=== PATIENT | female | born 1980 | race Caucasian/White ===

== ENCOUNTER 2016-03-10 20:53 | Emergency (ER) | payer OTHER ==
[~2016-03-10] VITALS: Ht 170.2 cm; Wt 72.3 kg
[~2016-03-10 20:53] MED LIST: ONDA4TAB7 SL
[2016-03-10 20:57] VITALS: TEMP 36.7; Ht 170.2 cm; Wt 72.3 kg
[2016-03-10] MEDS ORDERED: FLUO40CA8 PO (21:08)
[2016-03-10] MEDS ORDERED: CLON1TAB3 PO (21:08)
[2016-03-10] MEDS ORDERED: BSP/10 PO (21:08)
[2016-03-10] MEDS ORDERED: SODIUM CHLORIDE 0.9% 1000ML 1,000 ML IV STA (21:12)
[2016-03-10] MEDS ORDERED: KETOROLAC TROMETHAMINE 30 MG/ML VIAL IV STA (21:12)
[2016-03-10] MEDS ORDERED: OPTIRAY 320 IV PRN (21:30)
[2016-03-10 21:33] LABS: BASO % 0.2 %; BASO ABS # 0.01 K/uL (0-0.2); COMPLETE YES; EOS % 1.1 %; HEMATOCRIT 38.5 % (37-47); IG% 0.2 %; LYMPH % 33.5 %; LYMPH ABS # 1.51 K/uL (1.2-3.4); MEAN CELL VOLUME 88.1 fL (80-100); MEAN CORPUSCULAR HEMOGLOBIN 30.2 pg (25-34); MEAN CORPUSCULAR HGB CONC 34.3 g/dl (32-36); MEAN PLATELET VOLUME 10.7 fL (7.4-10.4); MONO % 8.6 %; NEUT % 56.4 %; PLATELET COUNT 196 K/uL (130-400); RED BLOOD COUNT 4.37 M/uL (4.2-5.4); WHITE BLOOD COUNT 4.51 K/uL (4.8-10.8)
[2016-03-10 21:50] LABS: BUN/CREATININE RATIO 10.3 (10-20); CALCIUM 9.2 mg/dl (8.5-10.1); CREATININE 0.98 mg/dl (0.60-1.20); POTASSIUM 3.5 mmol/L (3.5-5.1)
[2016-03-10 22:08] LABS: URINE APPEARANCE CLEAR (CLEAR); URINE COLOR DK YELLOW; URINE EPITHELIAL CELL AUTO >30 /lpf (0-5); URINE NITRITE NEG (NEG); URINE PH 6.5 (4.5-7.5); URINE SPECIFIC GRAVITY 1.028 (1.000-1.030); UROBILINOGEN NEG (NEG); ZZUR CULT IF INDIC CLEAN CATCH NO
[2016-03-10 22:10] LABS: MANUAL MICROSCOPIC REQUIRED? NO; REVIEW REQ? NO
[2016-03-10 22:11] LABS: URINE BILIRUBIN NEG (NEG)
[2016-03-10] MEDS ORDERED: MoRPHine SULFATE 10 MG/ML CARP/VIAL IV STA (22:25)
--- NOTE | 2016-03-10 22:47 | DIAGNOSTIC IMAGING REPORT ---
ABDOMEN AND PELVIS CT WITH IV CONTRAST CT DOSE: 355.12 mGy.cm HISTORY: lower pelvic abdominal pain TECHNIQUE: Multiaxial CT images of the abdomen and pelvis were performed following the use of intravenous contrast. COMPARISON STUDY: Abdomen and pelvis CT 08/04/2009. FINDINGS: Mild dependent changes seen within the lung bases posteriorly. No pneumoperitoneum. No pneumatosis. No fractures within the visualized osseous structures. There is a punctate stone within the gallbladder. Stable 9 mm hypodense lesion at the tip of the left hepatic lobe. Given the long-term stability this favors a benign lesion such as a hemangioma. The spleen, pancreas, kidneys, and adrenal glands are unremarkable. Normal bladder. The uterus is surgically absent. No retroperitoneal lymphadenopathy. No bowel wall thickening or obstruction. Normal appendix. IMPRESSION: 1. No bowel wall thickening or obstruction. 2. Normal appendix. 3. Cholelithiasis. No gallbladder wall thickening. Electronically signed by: Tomas London M.D. 03/10/2016 10:45 PM Dictated Date/Time: 03/10/2016 10:37 PM
[2016-03-10 23:42] VITALS: BP 111/70; PULSE 57; O2SAT 98
--- NOTE | 2016-03-11 01:31 | EMERGENCY ROOM VISIT NOTE ---
History Report prepared by Vicky: Annmarie Lockett Under the Supervision of: Dr. Christian Johnson D.O. First contact with patient: 21:01 Chief Complaint: ABDOMINAL PAIN Stated Complaint: PELVIC PAIN, GOING TO LEGS History of Present Illness The patient is a 35 year old female who presents to the Emergency Room with complaints of intermittent pelvic pain beginning 3 days ago. The patient states that she has had this pain intermittently over the last few days but today the pain is constant and worsened. She reports that the pain is in her lower abdomen area and radiated from the rectum and vagina. She complains of burning going down anterior portion of her legs and nausea. The patient denies any change in stools with her last bowel movement earlier today, trauma, fever, vomiting, diarrhea, vaginal discharge, vaginal bleeding, fever, new low back pain, numbness, weakness, and urinary symptoms. She notes that she has been having discharge from her nipples and has a lump in her breast that she is following up with her PCP for. The patient reports that she had a complete hysterectomy and still has her gallbladder and appendix. Source of History: patient Onset: 3 days ago Position: pelvis Timing: intermittent Associated Symptoms: + nausea, No back pain, No diarrhea, No fevers, No numbness, No urinary symptoms, No vomiting, No weakness Note: She complains of burning going down her legs and pain from the rectum and vagina. The patient denies any change in stools with her last bowel movement earlier today, trauma, vaginal discharge, vaginal bleeding. Review of Systems See HPI for pertinent positives & negatives. A total of 10 systems reviewed and were otherwise negative. Past Medical & Surgical Surgical Problems: (1) Hx of hysterectomy with oophorectomy Family History FH: cancer Social History Smoking Status: Former Smoker Alcohol Use: occasionally Marital Status: Housing Status: lives with family Occupation Status: employed Current/Historical Medications Scheduled Buspirone HCl (Buspirone HCl), 10 MG PO BID Fluoxetine (Prozac), 40 MG PO QPM Scheduled PRN Clonazepam (Klonopin), 1 MG PO TID PRN for Anxiety Allergies Coded Allergies: Ciprofloxacin (Unverified Allergy, Unknown, ., 03/10/16) Physical Exam Vital Signs Date Time Temp Pulse Resp B/P Pulse Ox O2 Delivery O2 Flow Rate FiO2 03/10/16 23:42 57 18 111/70 98 Room Air 03/10/16 23:41 81 16 121/66 99 03/10/16 22:50 70 20 112/59 98 Room Air 03/10/16 20:57 36.7 63 20 102/68 97 Room Air Physical Exam GENERAL: sitting up in bed, disheveled, non-toxic EYE EXAM: normal conjunctiva OROPHARYNX: no exudate, no erythema, lips, buccal mucosa, and tongue normal and mucous membranes are moist NECK: supple, no nuchal rigidity, no adenopathy, non-tender LUNGS: Clear to auscultation. Normal chest wall mechanics HEART: no murmurs, S1 normal and S2 normal ABDOMEN: abdomen soft, mild tenderness in suprapubic region , normo-active bowel sounds, no masses, no rebound or guarding. BACK: Back is symmetrical on inspection and there is no deformity, no midline tenderness, no CVA tenderness. SKIN: no rashes and no bruising UPPER EXTREMITIES: upper extremities are grossly normal. LOWER EXTREMITIES: No pitting edema. NEURO EXAM: Normal sensorium, cranial nerves II-XII grossly intact, normal speech, no gross weakness of arms, no gross weakness of legs. PELVIC: Normal external genitalia, normal vaginal mucosa, no cervix present. Medical Decision & Procedures ER Provider Diagnostic Interpretation: CT:Per my review, radiologist interpretation. ABDOMEN AND PELVIS CT WITH IV CONTRAST FINDINGS: Mild dependent changes seen within the lung bases posteriorly. No pneumoperitoneum. No pneumatosis. No fractures within the visualized osseous structures. There is a punctate stone within the gallbladder. Stable 9 mm hypodense lesion at the tip of the left hepatic lobe. Given the long-term stability this favors a benign lesion such as a hemangioma. The spleen, pancreas, kidneys, and adrenal glands are unremarkable. Normal bladder. The uterus is surgically absent. No retroperitoneal lymphadenopathy. No bowel wall thickening or obstruction. Normal appendix. IMPRESSION: 1. No bowel wall thickening or obstruction. 2. Normal appendix. 3. Cholelithiasis. No gallbladder wall thickening. Electronically signed by: Tomas London M.D. 03/10/2016 10:45 PM Dictated Date/Time: 03/10/2016 10:37 PM Laboratory Results 03/10/16 21:25 Red Blood Count 4.37, Mean Corpuscular Volume 88.1, Mean Corpuscular Hemoglobin 30.2, Mean Corpuscular Hemoglobin Concent 34.3, Mean Platelet Volume 10.7, Neutrophils (%) (Auto) 56.4, Lymphocytes (%) (Auto) 33.5, Monocytes (%) (Auto) 8.6, Eosinophils (%) (Auto) 1.1, Basophils (%) (Auto) 0.2, Neutrophils # (Auto) 2.54, Lymphocytes # (Auto) 1.51, Monocytes # (Auto) 0.39, Eosinophils # (Auto) 0.05, Basophils # (Auto) 0.01 03/10/16 21:25 Test 03/10/16 21:25 White Blood Count 4.51 K/uL (4.8-10.8) Red Blood Count 4.37 M/uL (4.2-5.4) Hemoglobin 13.2 g/dL (12.0-16.0) Hematocrit 38.5 % (37-47) Mean Corpuscular Volume 88.1 fL (80-100) Mean Corpuscular Hemoglobin 30.2 pg (25-34) Mean Corpuscular Hemoglobin Concent 34.3 g/dl (32-36) Platelet Count 196 K/uL (130-400) Mean Platelet Volume 10.7 fL (7.4-10.4) Neutrophils (%) (Auto) 56.4 % Lymphocytes (%) (Auto) 33.5 % Monocytes (%) (Auto) 8.6 % Eosinophils (%) (Auto) 1.1 % Basophils (%) (Auto) 0.2 % Neutrophils # (Auto) 2.54 K/uL (1.4-6.5) Lymphocytes # (Auto) 1.51 K/uL (1.2-3.4) Monocytes # (Auto) 0.39 K/uL (0.11-0.59) Eosinophils # (Auto) 0.05 K/uL (0-0.5) Basophils # (Auto) 0.01 K/uL (0-0.2) RDW Standard Deviation 40.6 fL (36.4-46.3) RDW Coefficient of Variation 12.6 % (11.5-14.5) Immature Granulocyte % (Auto) 0.2 % Immature Granulocyte # (Auto) 0.01 K/uL (0.00-0.02) Urine Color DK YELLOW Urine Appearance CLEAR (CLEAR) Urine pH 6.5 (4.5-7.5) Urine Specific [place] 1.028 (1.000-1.030) Urine Protein NEG (NEG) Urine Glucose (UA) NEG (NEG) Urine Ketones NEG (NEG) Urine Occult Blood NEG (NEG) Urine Nitrite NEG (NEG) Urine Bilirubin NEG (NEG) Urine Urobilinogen NEG (NEG) Urine Leukocyte Esterase TRACE (NEG) Urine WBC (Auto) 1-5 /hpf (0-5) Urine RBC (Auto) 0-4 /hpf (0-4) Urine Hyaline Casts (Auto) 5-10 /lpf (0-5) Urine Epithelial Cells (Auto) >30 /lpf (0-5) Urine Bacteria (Auto) NEG (NEG) Urine Test NEG (NEG) Anion Gap 7.0 mmol/L (3-11) Est Creatinine Clear Calc Drug Dose 76.5 ml/min Estimated GFR () 85.4 Estimated GFR (Non- 73.7 BUN/Creatinine Ratio 10.3 (10-20) Calcium Level 9.2 mg/dl (8.5-10.1) Total Bilirubin 1.1 mg/dl (0.2-1) Direct Bilirubin 0.2 mg/dl (0-0.2) Aspartate Amino Transf (AST/SGOT) 14 U/L (15-37) Alanine Aminotransferase (ALT/SGPT) 16 U/L (12-78) Alkaline Phosphatase 89 U/L (45-117) Total Protein 7.1 gm/dl (6.4-8.2) Albumin 4.2 gm/dl (3.4-5.0) Lipase 109 U/L (73-393) Laboratory results per my review. Medications Administered Medications (Trade) Dose Ordered Sig/Jono Route Start Time Stop Time Status Last Admin Dose Admin Sodium Chloride (Nss 1000ml) 1,000 ml @ 999 mls/hr Q1H1M STAT IV 03/10/16 21:12 03/10/16 22:12 DC 03/10/16 21:29 999 MLS/HR Ketorolac Tromethamine (Toradol Inj) 30 mg NOW STAT IV 03/10/16 21:12 03/10/16 21:13 DC 03/10/16 21:29 30 MG Morphine Sulfate (MoRPHine SULFATE INJ) 6 mg NOW STAT IV 03/10/16 22:25 03/10/16 22:26 DC 03/10/16 22:49 6 MG ED Course ED COURSE: Vital signs were reviewed and normal. The patients medical record was reviewed The above diagnostic studies were performed and reviewed. ED treatments and interventions as stated above. 2105: The patient was evaluated in room A12. A complete history and physical examination was performed. 2111: Toradol Inj 30mg IV, Sodium Chloride 1000 ml @ 999 mls/hr IV. 0: I reevaluated the patient and did a pelvic exam. 2224: Morphine Sulfate 6mg IV. 2337: Upon reevaluation, the patient is hemodynamically stable.I discussed my findings with the patient and she understands and agrees with the treatment plan. Based on the patients age, coexisting illnesses, exam and lab findings the decision to treat as an outpatient was made. The patient remained stable while under my care. The patient appeared well at the time of discharge. Medical Decision Differential diagnoses includes but is not limited to gastritis, peptic ulcer disease, GERD, gallbladder disease, pancreatitis, small bowel obstruction, acute coronary syndrome, pericarditis, ischemic bowel, irritable bowel disease, irritable bowel syndrome, appendicitis, diverticulitis, malignancy, hernia, urinary tract infection, torsion, /ectopic , perforation, trauma, infectious. Patient is a 35-year-old female who presents the ER for lower abdominal pain. Her pain is located just above her pubic symphysis. CBC along with BMP, LFTs are unremarkable. TBilirubin was slightly elevated at 1.1. Lipase is normal. UA was negative. was negative. CT of her abdomen pelvis was unremarkable. Patient was updated regards to findings. Pelvic was performed and was benign. Uncertain of the true etiology of her pain at this time and consequently recommended following up with PCP in next 24 hours. I do not believe that this is pelvic in origin with her benign exam and a complete hysterectomy. Her appendix was normal on CT. There is no bowel pathology. She was given 1 dose of IV morphine while in the ER was discharged follow-up with her primary care doctor. Discussed with Pt concerning signs and symptoms to watch out for. Pt was instructed to follow up with their PCP and discussed with the patient their option to return to the ED at anytime for persistent or worsening symptoms. The appropriate anticipatory guidance and out-patient management, including indications for return to the emergency department, were explained at length to the patient and understood. Impression Primary Impression: Lower abdominal pain Scribe Attestation The scribe's documentation has been prepared under my direction and personally reviewed by me in its entirety. I confirm that the note above accurately reflects all work, treatment, procedures, and medical decision making performed by me. Departure Information Dispostion Home / Self-Care Referrals Lino Solorzano D.O. (PCP) Forms Call Back Authorization, HOME CARE DOCUMENTATION FORM, IMPORTANT VISIT INFORMATION Patient Instructions ED Abd Pain Unkn Cause Fem, My [facility] Additional Instructions Please follow up with your primary care doctor with in the next 24 hours. Any worsening of your symptoms, please return to the ED immediately. This includes any fevers greater than 100.4, worsening abdominal pain, blood in her stool, pain with pain, weakness in the legs, numbness in her legs, numbness in her groin, or any other concerning signs or symptoms from your standpoint. Please take motion or Tylenol as needed for pain.
== END 2016-03-10 23:42 | disposition home or self-care (01) ==
LOC: C.EDB 20:54 → C.EDA 23:42
DX: R10.30 Lower abdominal pain, unspecified (principal); Z90.710 Acquired absence of both cervix and uterus; Z87.891 Personal history of nicotine dependence

== ENCOUNTER 2016-03-13 15:36 | Inpatient (IN) | payer OTHER ==
[~2016-03-13] VITALS: Ht 170.2 cm; Wt 73.3 kg
[~2016-03-13 15:36] MED LIST changes: +BSP/10 PO; +CLON1TAB3 PO; +FLUO40CA8 PO; -ONDA4TAB7 SL
[2016-03-13] MEDS ORDERED: ONDANSETRON INJ 2 MG/ML 2 ML VIAL IV STA (15:54)
[2016-03-13] MEDS ORDERED: SODIUM CHLORIDE 0.9% 1000ML 1,000 ML IV STA ×2 (15:54)
[2016-03-13] MEDS ORDERED: ONDANSETRON INJ 2 MG/ML 2 ML VIAL IV PRN ×2 (16:00→19:15)
[2016-03-13] MEDS ORDERED: KETOROLAC TROMETHAMINE 30 MG/ML VIAL IV STA (16:01)
[2016-03-13] MEDS ORDERED: ACETAMINOPHEN 500 MG TAB PO STA (16:01)
--- NOTE | 2016-03-13 16:04 | EMERGENCY ROOM VISIT NOTE ---
History Report prepared by Vicky: Aroldo Uribe Under the Supervision of: Dr. Jenna Duran M.D. First contact with patient: 15:45 Chief Complaint: ABDOMINAL PAIN Stated Complaint: SHARP ABD PAIN,NAUSEA,VOMITING,NUMBNESS HANDS/FACE History of Present Illness The patient is a 35 year old female who presents to the Emergency Room with complaints of persistent upper abdominal pain for the past week. The pain is sharp and is rated 8/10 in severity. The patient experienced nausea and vomiting earlier today. She also complains of chills and sweats. She denies any chest pain or shortness of breath. The patient was in the ED for the same abdominal pain three days ago. She had a CT scan that showed gallstones. The patient went to her PCP's office today, where she started to experience the nausea and vomiting. Source of History: patient Onset: one week Position: abdomen (upper) Symptom Intensity: 8/10 Quality: sharp Timing: other (persistent) Associated Symptoms: + chills, + nausea, + vomiting, No SOB, No chest pain Review of Systems See HPI for pertinent positives & negatives. A total of 10 systems reviewed and were otherwise negative. Past Medical & Surgical Medical Problems: (1) Biliary colic Surgical Problems: (1) Hx of hysterectomy with oophorectomy Family History FH: cancer Social History Smoking Status: Former Smoker Alcohol Use: occasionally Marital Status: Housing Status: lives with family Occupation Status: employed Current/Historical Medications Scheduled Buspirone HCl (Buspirone HCl), 10 MG PO BID Fluoxetine (Prozac), 40 MG PO QPM Scheduled PRN Clonazepam (Klonopin), 1 MG PO TID PRN for Anxiety Allergies Coded Allergies: Ciprofloxacin (Unverified Allergy, Unknown, ., 03/13/16) Physical Exam Vital Signs Date Time Temp Pulse Resp B/P Pulse Ox O2 Delivery O2 Flow Rate FiO2 03/13/16 19:11 68 16 109/61 97 Room Air 03/13/16 17:49 68 18 108/66 97 Room Air 03/13/16 17:04 61 18 97/57 96 Room Air 03/13/16 15:43 36.6 68 18 118/76 99 Room Air Physical Exam CONSTITUTIONAL: Moderate distress. Nontoxic in appearance. HEENT: No icterus, moist mucous membranes NECK: No meningismus, trachea is midline. CARDIOVASCULAR: Regular rate, normal perfusion RESPIRATORY: Unlabored breathing. Clear to auscultation. GASTROINTESTINAL: Moderate right upper quadrant tenderness. GENITOURINARY: No flank tenderness MUSCULOSKELETAL: Full range of motion NEUROLOGIC: No acute gross focal deficits. PSYCHIATRIC: Normal affect SKIN: Normal for ethnicity. Medical Decision & Procedures ER Provider Diagnostic Interpretation: US results as stated below per my review and radiologist interpretation. ABDOMINAL ULTRASOUND, RIGHT UPPER QUADRANT HISTORY: Abdominal pain, nausea and vomiting. COMPARISON: Right upper quadrant ultrasound September 02, [address] of the abdomen and pelvis March 10, 2016. FINDINGS: The liver is sonographically normal. There is trace sludge within the gallbladder. A suspected small gallstone is better depicted on recent CT. There is no gallbladder wall thickening or pericholecystic fluid. There is no biliary ductal dilatation. The pancreatic body is normal. The head and tail are partially obscured. There is no right hydronephrosis. IMPRESSION: Suspected cholelithiasis, better depicted on prior CT. Minimal gallbladder sludge. No sonographic evidence of acute cholecystitis. Electronically signed by: Kian Hurt M.D. 03/13/2016 5:56 PM Dictated Date/Time: 03/13/2016 5:53 PM Laboratory Results 03/13/16 15:55 Red Blood Count 4.42, Mean Corpuscular Volume 86.7, Mean Corpuscular Hemoglobin 29.4, Mean Corpuscular Hemoglobin Concent 33.9, Mean Platelet Volume 10.8, Neutrophils (%) (Auto) 68.4, Lymphocytes (%) (Auto) 24.1, Monocytes (%) (Auto) 6.9, Eosinophils (%) (Auto) 0.3, Basophils (%) (Auto) 0.3, Neutrophils # (Auto) 2.19, Lymphocytes # (Auto) 0.77, Monocytes # (Auto) 0.22, Eosinophils # (Auto) 0.01, Basophils # (Auto) 0.01 03/13/16 15:55 Test 03/13/16 15:55 03/13/16 17:05 White Blood Count 3.20 K/uL (4.8-10.8) Red Blood Count 4.42 M/uL (4.2-5.4) Hemoglobin 13.0 g/dL (12.0-16.0) Hematocrit 38.3 % (37-47) Mean Corpuscular Volume 86.7 fL (80-100) Mean Corpuscular Hemoglobin 29.4 pg (25-34) Mean Corpuscular Hemoglobin Concent 33.9 g/dl (32-36) Platelet Count 179 K/uL (130-400) Mean Platelet Volume 10.8 fL (7.4-10.4) Neutrophils (%) (Auto) 68.4 % Lymphocytes (%) (Auto) 24.1 % Monocytes (%) (Auto) 6.9 % Eosinophils (%) (Auto) 0.3 % Basophils (%) (Auto) 0.3 % Neutrophils # (Auto) 2.19 K/uL (1.4-6.5) Lymphocytes # (Auto) 0.77 K/uL (1.2-3.4) Monocytes # (Auto) 0.22 K/uL (0.11-0.59) Eosinophils # (Auto) 0.01 K/uL (0-0.5) Basophils # (Auto) 0.01 K/uL (0-0.2) RDW Standard Deviation 40.3 fL (36.4-46.3) RDW Coefficient of Variation 12.5 % (11.5-14.5) Immature Granulocyte % (Auto) 0.0 % Immature Granulocyte # (Auto) 0.00 K/uL (0.00-0.02) Anion Gap 9.0 mmol/L (3-11) Est Creatinine Clear Calc Drug Dose 89.2 ml/min Estimated GFR () 102.9 Estimated GFR (Non- 88.8 BUN/Creatinine Ratio 14.8 (10-20) Calcium Level 9.2 mg/dl (8.5-10.1) Total Bilirubin 1.4 mg/dl (0.2-1) Direct Bilirubin 0.2 mg/dl (0-0.2) Aspartate Amino Transf (AST/SGOT) 12 U/L (15-37) Alanine Aminotransferase (ALT/SGPT) 17 U/L (12-78) Alkaline Phosphatase 78 U/L (45-117) Total Protein 7.0 gm/dl (6.4-8.2) Albumin 4.1 gm/dl (3.4-5.0) Lipase 113 U/L (73-393) Human Chorionic Gonadotropin, Qual NEG (NEG) Urine Color YELLOW Urine Appearance CLEAR (CLEAR) Urine pH >= 9.0 (4.5-7.5) Urine Specific [place] 1.025 (1.000-1.030) Urine Protein NEG (NEG) Urine Glucose (UA) NEG (NEG) Urine Ketones 1+ (NEG) Urine Occult Blood NEG (NEG) Urine Nitrite NEG (NEG) Urine Bilirubin NEG (NEG) Urine Urobilinogen NEG (NEG) Urine Leukocyte Esterase TRACE (NEG) Urine WBC (Auto) 1-5 /hpf (0-5) Urine RBC (Auto) 0-4 /hpf (0-4) Urine Hyaline Casts (Auto) 1-5 /lpf (0-5) Urine Epithelial Cells (Auto) >30 /lpf (0-5) Urine Bacteria (Auto) 1+ (NEG) Labs reviewed by ED physician. Medications Administered Medications (Trade) Dose Ordered Sig/Jono Route Start Time Stop Time Status Last Admin Dose Admin Ondansetron HCl 4 mg 4 mg NOW STAT IV 03/13/16 15:54 03/13/16 15:58 DC 03/13/16 16:19 4 MG Sodium Chloride 1,000 ml @ 0 mls/hr Q0M STAT IV 03/13/16 15:54 03/13/16 15:58 DC 03/13/16 16:18 999 MLS/HR Sodium Chloride (Nss 1000ml) 1,000 ml @ 0 mls/hr Q0M STAT IV 03/13/16 15:54 03/13/16 15:58 DC 03/13/16 17:03 999 MLS/HR Ondansetron HCl (Zofran Inj) 4 mg NOW PRN IV 03/13/16 16:00 04/12/16 15:59 03/13/16 17:20 4 MG Acetaminophen (Tylenol Tab) 1,000 mg NOW STAT PO 03/13/16 16:01 03/13/16 16:02 DC 03/13/16 16:18 1,000 MG Ketorolac Tromethamine (Toradol Inj) 30 mg NOW STAT IV 03/13/16 16:01 03/13/16 16:02 DC 03/13/16 16:19 30 MG Hydromorphone HCl (Dilaudid Inj) 1 mg PRN STAT IV 03/13/16 17:11 03/13/16 17:12 DC 03/13/16 17:20 1 MG ED Course 1546: The patient was evaluated by the [place] medical student. 1557: Past medical records reviewed. The patient was evaluated in room C3. A complete history and physical examination was performed. 1600: Zofran 4 mg IV. 1601: Toradol 30 mg IV, Tylenol 1000 mg PO. 1711: Dilaudid 1 mg IV. 183: Discussed the case with Dr. Greene, Surgery. The patient will be evaluated by them. Medical Decision Differential diagnosis includes biliary disease. 35-year-old return to emergency room for persistent epigastric pain and nausea after recent ED visit several days ago at which time gallstones were identified. She was seen by her primary doctor and referred emergency room at which time she is noted to be in moderate to severe distress with moderate epigastric and right upper quadrant tenderness on exam. Labs and ultrasonic evaluation were negative for emergent disease however given the patient's history and second ED visit this week consultation was obtained with surgery and admission arranged. Consults Time Called: 1835 Consulting Physician: Dr. Greene, Surgery Returned Call: [phone]: Discussed the case with Dr. Greene, Surgery. The patient will be evaluated by them. Impression Primary Impression: Gallstones Scribe Attestation The scribe's documentation has been prepared under my direction and personally reviewed by me in its entirety. I confirm that the note above accurately reflects all work, treatment, procedures, and medical decision making performed by me. Departure Information Dispostion Being Evaluated By Surgeon Referrals No Doctor, Assigned (PCP) Patient Instructions My [facility]
[2016-03-13 16:27] LABS: BASO % 0.3 %; BASO ABS # 0.01 K/uL (0-0.2); COMPLETE YES; EOS % 0.3 %; HEMATOCRIT 38.3 % (37-47); LYMPH % 24.1 %; LYMPH ABS # 0.77 K/uL (1.2-3.4); MEAN CELL VOLUME 86.7 fL (80-100); MEAN CORPUSCULAR HEMOGLOBIN 29.4 pg (25-34); MEAN CORPUSCULAR HGB CONC 33.9 g/dl (32-36); MEAN PLATELET VOLUME 10.8 fL (7.4-10.4); MONO % 6.9 %; NEUT % 68.4 %; PLATELET COUNT 179 K/uL (130-400); RED BLOOD COUNT 4.42 M/uL (4.2-5.4)
[2016-03-13 16:49] LABS: BUN/CREATININE RATIO 14.8 (10-20); CALCIUM 9.2 mg/dl (8.5-10.1); CREATININE 0.84 mg/dl (0.60-1.20); POTASSIUM 3.3 mmol/L (3.5-5.1)
[2016-03-13 16:56] LABS: PREG INTERNAL NEGATIVE QC NEG CLEAR BACKGROUND; PREG INTERNAL POSITIVE QC POS CONTROL LINE
[2016-03-13] MEDS ORDERED: HYDROmorphone INJ 1 MG/ML SYR IV STA (17:11)
[2016-03-13 17:48] LABS: URINE APPEARANCE CLEAR (CLEAR); URINE BILIRUBIN NEG (NEG); URINE COLOR YELLOW; URINE EPITHELIAL CELL AUTO >30 /lpf (0-5); URINE NITRITE NEG (NEG); URINE PH >= 9.0 (4.5-7.5); URINE SPECIFIC GRAVITY 1.025 (1.000-1.030); UROBILINOGEN NEG (NEG)
--- NOTE | 2016-03-13 17:58 | DIAGNOSTIC IMAGING REPORT ---
ABDOMINAL ULTRASOUND, RIGHT UPPER QUADRANT HISTORY: Abdominal pain, nausea and vomiting. COMPARISON: Right upper quadrant ultrasound September 02, [address] of the abdomen and pelvis March 10, 2016. FINDINGS: The liver is sonographically normal. There is trace sludge within the gallbladder. A suspected small gallstone is better depicted on recent CT. There is no gallbladder wall thickening or pericholecystic fluid. There is no biliary ductal dilatation. The pancreatic body is normal. The head and tail are partially obscured. There is no right hydronephrosis. IMPRESSION: Suspected cholelithiasis, better depicted on prior CT. Minimal gallbladder sludge. No sonographic evidence of acute cholecystitis. Electronically signed by: Kian Hurt M.D. 03/13/2016 5:56 PM Dictated Date/Time: 03/13/2016 5:53 PM
[2016-03-13 18:06] LABS: MANUAL MICROSCOPIC REQUIRED? NO; REVIEW REQ? NO; SULFASALICYLIC ACID NEG (NEG)
[2016-03-13] MEDS ORDERED: CLONAZEPAM 1 MG TAB PO PRN (19:15)
[2016-03-13] MEDS ORDERED: PROMETHAZINE HCL INJ 25 MG in SODIUM CHLORIDE 0.9% 50ML 50 ML IV PRN (19:15)
--- NOTE | 2016-03-13 19:50 | HISTORY & PHYSICAL EXAMINATION ---
DATE OF ADMISSION: 03/13/2016 PRINCIPAL DIAGNOSIS: Biliary colic. HISTORY OF PRESENT ILLNESS: The patient is a 35-year-old female who has been in the ER twice, first on March 10 and then today with nausea, vomiting, abdominal pain which has persisted. She has had some chills and sweats. She did have an ultrasound which showed possible gallstones, but also had a CAT scan on her previous presentation showing gallstones. She has had a previous hysterectomy. She is an ex-smoker. REVIEW OF SYSTEMS: Please see HPI for positives. Ten other systems reviewed and negative. FAMILY AND SOCIAL HISTORY: Noncontributory. MEDICATIONS: She takes medications including buspirone, Klonopin and Prozac. ALLERGIES: CIPRO. PHYSICAL EXAMINATION: GENERAL: She is awake and alert, responsive, in no distress. She has no respiratory distress. HEENT: Her sclerae are nonicteric. NECK: Supple. SKIN: She has no rashes. LUNGS: Clear. HEART: Regular rate and rhythm. ABDOMEN: Soft, but she does have tenderness in the upper abdomen to deep palpation. EXTREMITIES: Without significant edema. I did review her CAT scan and ultrasound. Her laboratory showed no significant abnormalities. ASSESSMENT AND PLAN: A 35-year-old female with severe abdominal pain consistent with biliary colic and history of gallstones. I do think she should be admitted to the hospital and then undergo laparoscopic cholecystectomy within the next 24-48 hours.
[2016-03-13 20:00] VITALS: BP 98/59; PULSE 53; TEMP 36.7; O2SAT 96; Ht 170.2 cm; Wt 73.3 kg
[2016-03-13] MEDS ORDERED: PROMETHAZINE HCL INJ 12.5 MG in SODIUM CHLORIDE 0.9% 50ML 50 ML IV PRN (20:00)
[2016-03-13] MEDS: HYDROmorphone INJ 1 MG/ML SYR IV PRN (20:19)
[2016-03-13] MEDS: FLUOXETINE HCL 20 MG CAP PO SCH (21:27)
[2016-03-13] MEDS ORDERED: LACTATED RINGER'S 1000ML 1,000 ML IV SCH (22:00)
[2016-03-13] MEDS: KETOROLAC TROMETHAMINE 30 MG/ML VIAL IV. SCH (22:10)
[2016-03-13] MEDS: AMPICILLIN/SULBACTAM SOD INJ 1,500 MG in SODIUM CHLORIDE 0.9% 100ML 100 ML IV SCH (22:10)
[2016-03-13 23:10] VITALS: BP 82/37; PULSE 57; TEMP 36.5; O2SAT 97
[2016-03-13 23:13] VITALS: BP 76/43
[2016-03-14] VITALS (11 sets, daily range): BP systolic 82–109; BP diastolic 48–65; PULSE 53–64; TEMP 36.3–36.7; O2SAT 95–100
[2016-03-14] MEDS: AMPICILLIN/SULBACTAM SOD INJ 1,500 MG in SODIUM CHLORIDE 0.9% 100ML 100 ML IV SCH ×3 (04:18→16:14)
[2016-03-14] MEDS: KETOROLAC TROMETHAMINE 30 MG/ML VIAL IV. SCH ×4 (05:12→23:50)
--- NOTE | 2016-03-14 05:25 | History & Physical Bridge Note ---
H&P Re-Evaluation Bridge Note: I have examined the patient, reviewed the History & Physical and in the interval since the performance of the History & Physical I have noted the following changes of clinical significance: No changes noted
[2016-03-14] MEDS ORDERED: MIDAZOLAM HCL 1 MG/ML 2ML VIAL ONE (06:45)
[2016-03-14] MEDS ORDERED: FENTANYL CITRATE INJ 50 MCG/1 ML 2 ML VIAL ONE (06:45)
[2016-03-14] MEDS ORDERED: LIDOCAINE HCL 2% 2 ML VIAL (20MG/ML) ONE (07:44)
[2016-03-14] MEDS ORDERED: NEOSTIGMINE METHYLSULFATE 5 MG/5 ML SYR ONE (07:44)
[2016-03-14] MEDS ORDERED: ROCURONIUM BROMIDE 10 MG/ML 5 ML VIAL ONE (07:44)
[2016-03-14] MEDS ORDERED: GLYCOPYRROLATE INJ 0.2 MG/ML VIAL ONE (07:44)
[2016-03-14] MEDS ORDERED: PROPOFOL IV EMULSION 10 MG/ML 20 ML VIAL IV ONE (07:44)
[2016-03-14] MEDS ORDERED: DEXAMETHASONE SOD INJ 4 MG/ML VIAL ONE (07:44)
[2016-03-14] MEDS ORDERED: ONDANSETRON INJ 2 MG/ML 2 ML VIAL ONE (07:44)
[2016-03-14] MEDS ORDERED: INFLUENZA VIRUS QUAD VACCINE 0.5 ML SYR IM. ONE (08:00)
[2016-03-14] MEDS ORDERED: INFLUENZA ADMINISTRATION CHARGE ONE (08:00)
[2016-03-14] MEDS ORDERED: BUPIVACAINE 0.5 % 5 MG/1 ML MPF 30ML VIAL INJ ONE (08:19)
--- NOTE | 2016-03-14 08:28 | [facility] Operative Report ---
Operative Report Operative Date Mar 14, 2016. Pre-Operative Diagnosis Biliary colic Post-Operative Diagnosis same Procedure(s) Performed lap mathew Surgeon Dr. Leonidas Greene Impregnator Surgeon(s) None Estimated Blood Loss 10 mL Findings dilated gb and chronic inflammation in posterior wall Specimens Permanent Specimens A: Gallbladder and contents Anesthesia gen Complication(s) None Disposition Recovery Room / PACU I attest to the content of the Intraoperative Record and any orders documented therein. Any exceptions are noted below.
[2016-03-14] MEDS ORDERED: LACTATED RINGER'S 1000ML 1,000 ML IV SCH (08:30)
[2016-03-14] MEDS ORDERED: FENTANYL CITRATE INJ 50 MCG/1 ML 2 ML VIAL IV PRN (08:45)
[2016-03-14] MEDS ORDERED: ONDANSETRON INJ 2 MG/ML 2 ML VIAL IV PRN (08:45)
[2016-03-14] MEDS ORDERED: MEPERIDINE HCL 25 MG/ML CARP IV PRN (08:45)
[2016-03-14] MEDS ORDERED: EpHEDrine SULFATE INJ 50 MG/ML AMP IV PRN (08:45)
[2016-03-14] MEDS ORDERED: LABETALOL HCL IV 5 MG/ML 20ML IV PRN (08:45)
[2016-03-14] MEDS ORDERED: ATROPINE SULFATE 0.1 MG/ML 5ML SYR IV PRN (08:45)
[2016-03-14] MEDS ORDERED: HYDROmorphone INJ 1 MG/ML SYR IV PRN (08:45)
[2016-03-14] MEDS ORDERED: HYDROmorphone INJ 2 MG/ML SYR/VIAL ONE (08:49)
--- NOTE | 2016-03-14 10:28 | OPERATIVE REPORT ---
DATE OF OPERATION: 03/14/2016 NAME OF OPERATION: Laparoscopic cholecystectomy. PREOPERATIVE DIAGNOSIS: Biliary colic. POSTOPERATIVE DIAGNOSIS: Same. STAFF SURGEON: Dr. Leonidas Greene. ANESTHESIA: General. DESCRIPTION OF PROCEDURE: The patient was brought into the operating room and placed on the operating table in the supine position. Her abdomen was prepped and draped in the usual fashion. Using 0.5% plain Marcaine, all incisions were anesthetized. Incision was made just below the umbilicus through previous scar tissue carrying dissection down to the fascia, placing a Veress needle, and producing a pneumoperitoneum. At this point, three 5-mm ports were placed, 1 cephalad and 2 laterally, all under visualization. The gallbladder was very distended. It was grasped and retracted, aspirated of bile. Then, dissection carried out at the chandler hepatis, identifying the cystic duct and the cystic artery. These were clipped and transected and the gallbladder dissected away from the liver bed in the usual fashion. There was thickening in the posterior wall consistent with chronic inflammation. After appropriate hemostasis and irrigation, the gallbladder was placed in an Endobag and then removed through the umbilical site. All ports were then removed. The umbilical fascia closed using interrupted 0 Vicryl suture. Subcutaneous tissue reapproximated using 2-0 plain catgut suture and then the skin at the umbilicus closed using 5-0 Prolene suture. The other sites were closed using subcuticular 4-0 Monocryl and Dermabond. The patient was transferred to recovery room in stable condition. I attest to the content of the Intraoperative Record and any orders documented therein. Any exceptio ns are noted below.
[2016-03-14] MEDS ORDERED: NURSING VERBAL MED ORDER ONE ×3 (13:30→15:15)
--- NOTE | 2016-03-14 13:51 | Anesthesiology Progress Note ---
Anesthesia Post Op Note Date & Time Mar 14, 2016 at 13:50 Vital Signs Pain Intensity: 2.0 Vital Signs Past 12 Hours Date Time Temp Pulse Resp B/P Pulse Ox O2 Delivery O2 Flow Rate FiO2 03/14/16 12:43 58 18 103/65 99 Room Air 03/14/16 11:27 36.7 64 17 96/58 98 Nasal Cannula 2.0 03/14/16 10:29 36.6 53 17 109/55 100 Nasal Cannula 2.0 03/14/16 10:04 36.6 54 16 100/56 100 Nasal Cannula 2.0 03/14/16 09:36 03/14/16 09:30 96 Nasal Cannula 2.0 03/14/16 09:30 36.6 54 16 98/54 96 Nasal Cannula 2.0 03/14/16 09:30 96 Nasal Cannula 2.0 03/14/16 09:20 36.7 03/14/16 09:19 56 16 96 03/14/16 09:19 57 16 114/63 98 03/14/16 09:13 99/57 03/14/16 09:09 52 16 03/14/16 09:09 51 12 97 03/14/16 09:08 96/58 03/14/16 09:07 51 16 96 03/14/16 09:07 51 16 03/14/16 09:03 90/55 03/14/16 09:02 53 16 98 03/14/16 09:02 53 16 98 03/14/16 08:59 98/52 03/14/16 08:56 56 15 100 03/14/16 08:56 51 16 100 03/14/16 08:53 108/61 03/14/16 08:52 37.3 66 16 118/68 100 Mask 10 03/14/16 08:51 55 16 100 03/14/16 08:51 55 16 03/14/16 08:50 56 12 03/14/16 08:50 57 12 100 03/14/16 08:49 107/75 03/14/16 08:45 56 13 100 03/14/16 08:45 56 12 100 03/14/16 08:43 103/57 03/14/16 08:39 119/51 03/14/16 08:35 55 13 03/14/16 08:35 55 13 100 03/14/16 06:55 36.7 53 19 97/48 97 Room Air 03/14/16 03:57 57 97/60 Notes Mental Status: alert / awake / arousable, participated in evaluation Pt Amnestic to Procedure: Yes Nausea / Vomiting: adequately controlled Pain: adequately controlled Airway Patency, RR, SpO2: stable & adequate BP & HR: stable & adequate Hydration State: stable & adequate Anesthetic Complications: no major complications apparent
[2016-03-14] MEDS ORDERED: ALUMINUM/MAGNESIUM SUSP 30 ML UDC PO PRN (14:45)
[2016-03-14] MEDS: HYDROCODONE/ACETAMOPHEN 5/325MG TAB PO PRN (16:13)
[2016-03-14] MEDS: HYDROmorphone INJ 0.5 MG/0.5 ML SYR IV PRN ×2 (17:27→20:59)
[2016-03-14] MEDS: FLUOXETINE HCL 20 MG CAP PO SCH (20:56)
[2016-03-15 03:25] VITALS: BP 97/56; PULSE 76; TEMP 36.8; O2SAT 95
[2016-03-15] MEDS: KETOROLAC TROMETHAMINE 30 MG/ML VIAL IV. SCH (05:04)
[2016-03-15 05:28] LABS: HEMATOCRIT 32.5 % (37-47); MEAN CORPUSCULAR HEMOGLOBIN 30.4 pg (25-34); MEAN CORPUSCULAR HGB CONC 34.2 g/dl (32-36); MEAN PLATELET VOLUME 11.2 fL (7.4-10.4); PLATELET COUNT 177 K/uL (130-400); RED BLOOD COUNT 3.65 M/uL (4.2-5.4); WHITE BLOOD COUNT 5.74 K/uL (4.8-10.8)
--- NOTE | 2016-03-15 06:07 | Surgery Progress Note ---
Surgery Progress Note Date of Service Mar 15, 2016. Subjective resting comfortably- vitals stable po pain med tolerated Objective Vital Signs: Date Time Temp Pulse Resp B/P Pulse Ox O2 Delivery O2 Flow Rate FiO2 03/15/16 03:25 36.8 76 16 97/56 95 Room Air 03/15/16 00:00 Room Air 03/14/16 23:00 36.7 53 16 96/57 95 Room Air 03/14/16 19:55 36.5 62 18 102/58 99 Room Air 03/14/16 19:05 Room Air 03/14/16 15:45 36.3 58 16 103/62 99 Room Air 03/14/16 12:43 58 18 103/65 99 Room Air 03/14/16 11:27 36.7 64 17 96/58 98 Nasal Cannula 2.0 03/14/16 10:29 36.6 53 17 109/55 100 Nasal Cannula 2.0 03/14/16 10:04 36.6 54 16 100/56 100 Nasal Cannula 2.0 03/14/16 09:36 03/14/16 09:30 96 Nasal Cannula 2.0 03/14/16 09:30 36.6 54 16 98/54 96 Nasal Cannula 2.0 03/14/16 09:30 96 Nasal Cannula 2.0 03/14/16 09:20 36.7 03/14/16 09:19 56 16 96 03/14/16 09:19 57 16 114/63 98 03/14/16 09:13 99/57 03/14/16 09:09 52 16 03/14/16 09:09 51 12 97 03/14/16 09:08 96/58 03/14/16 09:07 51 16 96 03/14/16 09:07 51 16 03/14/16 09:03 90/55 03/14/16 09:02 53 16 98 03/14/16 09:02 53 16 98 03/14/16 08:59 98/52 03/14/16 08:56 56 15 100 03/14/16 08:56 51 16 100 03/14/16 08:53 108/61 03/14/16 08:52 37.3 66 16 118/68 100 Mask 10 03/14/16 08:51 55 16 100 03/14/16 08:51 55 16 03/14/16 08:50 56 12 03/14/16 08:50 57 12 100 03/14/16 08:49 107/75 03/14/16 08:45 56 13 100 03/14/16 08:45 56 12 100 03/14/16 08:43 103/57 03/14/16 08:39 119/51 03/14/16 08:35 55 13 03/14/16 08:35 55 13 100 03/14/16 06:55 36.7 53 19 97/48 97 Room Air General Appearance: no apparent distress Respiratory/Chest: no respiratory distress Abdomen: soft Laboratory Results: Results Past 24 Hours Test 03/15/16 05:05 Range/Units White Blood Count 5.74 4.8-10.8 K/uL Red Blood Count 3.65 4.2-5.4 M/uL Hemoglobin 11.1 12.0-16.0 g/dL Hematocrit 32.5 37-47 % Mean Corpuscular Volume 89.0 80-100 fL Mean Corpuscular Hemoglobin 30.4 25-34 pg Mean Corpuscular Hemoglobin Concent 34.2 32-36 g/dl RDW Standard Deviation 40.3 36.4-46.3 fL RDW Coefficient of Variation 12.6 11.5-14.5 % Platelet Count 177 130-400 K/uL Mean Platelet Volume 11.2 7.4-10.4 fL Assessment & Plan 03/15/16- s/p lap mathew- doing well pod #1, stop toradol possible d/c today
[2016-03-15 06:13] LABS: ALB/GLOB RATIO 1.2 (0.9-2); BUN/CREATININE RATIO 18.3 (10-20); CALCIUM 8.6 mg/dl (8.5-10.1); CREATININE 0.97 mg/dl (0.60-1.20); POTASSIUM 3.5 mmol/L (3.5-5.1)
[2016-03-15 07:00] VITALS: BP 94/59; PULSE 66; TEMP 36.9; O2SAT 97
[2016-03-15] MEDS: HYDROCODONE/ACETAMOPHEN 5/325MG TAB PO PRN ×3 (08:37→19:44)
[2016-03-15] MEDS ORDERED: HYDR-5688 PO (08:42)
--- NOTE | 2016-03-15 08:44 | Discharge Instructions ---
Discharge Instructions Admission Reason for Admission: Biliary Colic Discharge Discharge Diagnosis / Problem: laparoscopic cholecystectomy Discharge Goals Goal(s): Decrease discomfort Activity Recommendations Activity Limitations: per Instructions/Follow-up section Lifting Limitations: no more than 10 pounds Shower/Bathe: no limitations (ok to shower) Driving or Machine Use: resume 3 days after discharge . Instructions / Follow-Up Instructions / Follow-Up Dr. Greene in 2 weeks, [address] , call [phone] to schedule or for any concerns Current Hospital Diet Patient's current hospital diet: Regular Diet Discharge Diet Recommended Diet: Regular Diet Procedures Procedures Performed: Laparoscopic Cholecystectomy Pending Studies Studies pending at discharge: no Work Instructions Return To Work: after follow-up Medical Emergencies . Who to Call and When: Medical Emergencies: If at any time you feel your situation is an emergency, please call 911 immediately. . Non-Emergent Contact Non-Emergency issues call your: Surgeon Call Non-Emergent contact if: you have a fever, temperature is above 101.5, your pain is not controlled, your pain is worsening, wound has increased redness , wound has increased pain . "Provider Documentation" section prepared by Hong Ag. VTE Core Measure Inpt VTE Proph given/why not?: SCD's
--- NOTE | 2016-03-15 10:27 | Surgery Progress Note ---
Surgery Progress Note Date of Service Mar 15, 2016. Subjective some abd pain, sl nausea- toradol stopped Objective Vital Signs: Date Time Temp Pulse Resp B/P Pulse Ox O2 Delivery O2 Flow Rate FiO2 03/15/16 08:58 Room Air 03/15/16 07:00 36.9 66 18 94/59 97 Room Air 03/15/16 03:25 36.8 76 16 97/56 95 Room Air 03/15/16 00:00 Room Air 03/14/16 23:00 36.7 53 16 96/57 95 Room Air 03/14/16 19:55 36.5 62 18 102/58 99 Room Air 03/14/16 19:05 Room Air 03/14/16 15:45 36.3 58 16 103/62 99 Room Air 03/14/16 12:43 58 18 103/65 99 Room Air 03/14/16 11:27 36.7 64 17 96/58 98 Nasal Cannula 2.0 03/14/16 10:29 36.6 53 17 109/55 100 Nasal Cannula 2.0 Abdomen: soft Laboratory Results: Results Past 24 Hours Test 03/15/16 05:05 Range/Units White Blood Count 5.74 4.8-10.8 K/uL Red Blood Count 3.65 4.2-5.4 M/uL Hemoglobin 11.1 12.0-16.0 g/dL Hematocrit 32.5 37-47 % Mean Corpuscular Volume 89.0 80-100 fL Mean Corpuscular Hemoglobin 30.4 25-34 pg Mean Corpuscular Hemoglobin Concent 34.2 32-36 g/dl RDW Standard Deviation 40.3 36.4-46.3 fL RDW Coefficient of Variation 12.6 11.5-14.5 % Platelet Count 177 130-400 K/uL Mean Platelet Volume 11.2 7.4-10.4 fL Sodium Level 145 136-145 mmol/L Potassium Level 3.5 3.5-5.1 mmol/L Chloride Level 109 98-107 mmol/L Carbon Dioxide Level 30 21-32 mmol/L Anion Gap 6.0 3-11 mmol/L Blood Urea Nitrogen 18 7-18 mg/dl Creatinine 0.97 0.60-1.20 mg/dl Est Creatinine Clear Calc Drug Dose 77.2 ml/min Estimated GFR () 86.5 Estimated GFR (Non- 74.6 BUN/Creatinine Ratio 18.3 10-20 Random Glucose 103 70-99 mg/dl Calcium Level 8.6 8.5-10.1 mg/dl Total Bilirubin 0.5 0.2-1 mg/dl Direct Bilirubin 0.1 0-0.2 mg/dl Aspartate Amino Transf (AST/SGOT) 20 15-37 U/L Alanine Aminotransferase (ALT/SGPT) 25 12-78 U/L Alkaline Phosphatase 62 45-117 U/L Total Protein 5.6 6.4-8.2 gm/dl Albumin 3.1 3.4-5.0 gm/dl Globulin 2.5 2.5-4.0 gm/dl Albumin/Globulin Ratio 1.2 0.9-2 Assessment & Plan 1- s/p lap mathew- doing well pod #1, stop toradol possible d/c today will keep in hospital today- be sure nausea, pain controlled 03/15/16- s/p lap mathew- doing well pod #1, stop toradol possible d/c today
[2016-03-15] MEDS ORDERED: IBUPROFEN 600 MG TAB PO PRN (10:30)
[2016-03-15 15:15] VITALS: BP 100/67; PULSE 53; TEMP 36.6; O2SAT 97
[2016-03-15 19:35] VITALS: O2SAT 97
[2016-03-15] MEDS: HYDROmorphone INJ 1 MG/ML SYR IV PRN (22:23)
[2016-03-15] MEDS: FLUOXETINE HCL 20 MG CAP PO SCH (22:23)
[2016-03-15 22:54] VITALS: BP 100/63; PULSE 54; TEMP 36.7; O2SAT 93
--- NOTE | 2016-03-16 07:47 | DISCHARGE SUMMARY ---
PRINCIPAL DIAGNOSIS: Acute cholecystitis. PROCEDURES: The patient underwent laparoscopic cholecystectomy. HISTORY OF PRESENT ILLNESS: The patient is a 35-year-old female presenting to the Emergency Room with acute persistent abdominal pain felt secondary to acute cholecystitis. HOSPITAL COURSE: The patient was taken to the operating room on 03/14/2016 where she underwent laparoscopic cholecystectomy. She has done well, progressing in both diet and activity and felt stable for discharge home today to be followed in the surgical clinic next week.
[2016-03-16 09:25] VITALS: BP 100/63; PULSE 54; TEMP 36.7; O2SAT 93
== END 2016-03-16 09:53 | disposition home or self-care (01) | DRG 419 ==
LOC: ENRESERVDT → ENRESERVTM → C.EDB 15:36 → C.3E 19:15
PROVIDERS: ADMIT Surgery; ATTEND Surgery
PROC: 0FT44ZZ Resection of Gallbladder, Percutaneous Endoscopic Approach (ICD-10-PCS; principal; 2016-03-14 07:00)
DX: K80.42 Calculus of bile duct with acute cholecystitis without obstruction (principal); Z87.891 Personal history of nicotine dependence; Z90.710 Acquired absence of both cervix and uterus; Z79.899 Other long term (current) drug therapy; Z83.3 Family history of diabetes mellitus

== ENCOUNTER 2016-08-03 19:38 | Emergency (ER) | payer OTHER ==
[~2016-08-03] VITALS: Ht 170.2 cm; Wt 77.9 kg
[~2016-08-03 19:38] MED LIST changes: +HYDR-5688 PO
[2016-08-03 19:55] VITALS: TEMP 36.6; Ht 170.2 cm; Wt 77.9 kg
[2016-08-03 20:45] LABS: MANUAL MICROSCOPIC REQUIRED? NO; REVIEW REQ? NO; URINE APPEARANCE CLEAR (CLEAR); URINE BILIRUBIN NEG (NEG); URINE COLOR YELLOW; URINE NITRITE NEG (NEG); URINE SPECIFIC GRAVITY 1.016 (1.000-1.030); UROBILINOGEN NEG (NEG); ZZUR CULT IF INDIC CLEAN CATCH NO
[2016-08-03] MEDS ORDERED: SODIUM CHLORIDE 0.9% 1000ML 1,000 ML IV STA (20:51)
[2016-08-03 20:56] LABS: BASO % 0.3 %; BASO ABS # 0.02 K/uL (0-0.2); COMPLETE YES; EOS % 1.3 %; IG% 0.2 %; LYMPH % 27.8 %; LYMPH ABS # 1.69 K/uL (1.2-3.4); MEAN CELL VOLUME 88.6 fL (80-100); MEAN CORPUSCULAR HEMOGLOBIN 30.2 pg (25-34); MEAN CORPUSCULAR HGB CONC 34.1 g/dl (32-36); MEAN PLATELET VOLUME 10.9 fL (7.4-10.4); MONO % 4.6 %; NEUT % 65.8 %; PLATELET COUNT 205 K/uL (130-400); WHITE BLOOD COUNT 6.08 K/uL (4.8-10.8)
[2016-08-03 21:11] LABS: BUN/CREATININE RATIO 13.7 (10-20); CREATININE 0.91 mg/dl (0.60-1.20)
--- NOTE | 2016-08-03 21:38 | DIAGNOSTIC IMAGING REPORT ---
EXAMINATION: RENAL ULTRASOUND CLINICAL HISTORY: Flank pain URINARY SYMPTOMS COMPARISON STUDY: 09/02/2013 FINDINGS: The right kidney measures 12.0 cm. The left kidney measures 11.1 cm. There is no evidence of hydronephrosis. There are no renal masses. No bladder lesions are visualized. Neither ureteral jet was identified. IMPRESSION : Normal kidneys. No bladder lesions identified. Neither ureteral jet was visualized at the time of scanning. Electronically signed by: Dionisio Hu M.D. 08/03/2016 9:37 PM Dictated Date/Time: 08/03/2016 9:36 PM
--- NOTE | 2016-08-03 21:40 | DIAGNOSTIC IMAGING REPORT ---
EXAMINATION: PELVIC ULTRASOUND (transabdominal only) CLINICAL HISTORY: pelvic pain COMPARISON STUDY: 06/10/2009 FINDINGS: The uterus is surgically absent. The ovaries are surgically absent. No pathologic pelvic masses were visualized. There is no free fluid. The patient refused endovaginal scanning. IMPRESSION: Surgically absent uterus and ovaries. No abnormal pelvic masses identified. Electronically signed by: Dionisio Hu M.D. 08/03/2016 9:38 PM Dictated Date/Time: 08/03/2016 9:37 PM
--- NOTE | 2016-08-03 23:08 | EMERGENCY ROOM VISIT NOTE ---
History First contact with patient: 20:02 Chief Complaint: FLANK PAIN Stated Complaint: BACK AND PELVIC PAIN History of Present Illness The patient is a 36 year old female who presents to the Emergency Room with complaints of right flank pain and pelvic pain 2 days. The patient states that her urine has been strong smelling for the past few weeks. She states that at times it is dark and occasionally it is cloudy. The patient also reports she has had a greenish discharge from her nipples intermittently. The patient states the pain in her abdomen is dull and she rates the discomfort a 6/ 10. She denies any vaginal discharge. She denies any nausea, vomiting or fevers. She does report a history of kidney infections but does not feel this is similar. She denies any changes in bowel movements, chest pain or shortness of breath. Review of Systems A complete 10 point review of systems was reviewed with the patient with pertinent positives and negatives as per history of present illness. All else were negative. Past Medical/Surgical History Medical Problems: (1) Biliary colic Surgical Problems: (1) Hx of hysterectomy with oophorectomy Family History FH: cancer Social History Smoking Status: Former Smoker Alcohol Use: occasionally Marital Status: Housing Status: lives with family Occupation Status: employed Current/Historical Medications No Active Prescriptions or Reported Meds Allergies Coded Allergies: Ciprofloxacin (Unverified Allergy, Unknown, ., 08/03/16) Physical Exam Vital Signs Date Time Temp Pulse Resp B/P (MAP) Pulse Ox O2 Delivery O2 Flow Rate FiO2 08/03/16 23:20 64 18 97/48 97 08/03/16 21:52 68 18 93/59 97 Room Air 08/03/16 19:55 36.6 69 18 109/65 98 Room Air Physical Exam VITALS: Vitals are noted on the nurse's note and reviewed by myself. Vital signs stable. GENERAL: This is a 36-year-old female, in no acute distress, nondiaphoretic, well-developed well-nourished. BREASTS: No masses palpated, nipples are unremarkable without discharge. HEART: Regular rate and rhythm without murmurs gallops or rubs. LUNGS: Clear to auscultation bilaterally without wheezes, rales or rhonchi. No dullness to percussion. ABDOMEN: Soft, no tenderness to palpation. MUSCULOSKELETAL: Mild right CVA tenderness. NEURO: Patient was alert and oriented to person place and time. Medical Decision & Procedures ER Provider Diagnostic Interpretation: EXAMINATION: PELVIC ULTRASOUND (transabdominal only) FINDINGS: The uterus is surgically absent. The ovaries are surgically absent. No pathologic pelvic masses were visualized. There is no free fluid. The patient refused endovaginal scanning. IMPRESSION: Surgically absent uterus and ovaries. No abnormal pelvic masses identified. EXAMINATION: RENAL ULTRASOUND FINDINGS: The right kidney measures 12.0 cm. The left kidney measures 11.1 cm. There is no evidence of hydronephrosis. There are no renal masses. No bladder lesions are visualized. Neither ureteral jet was identified. IMPRESSION : Normal kidneys. No bladder lesions identified. Neither ureteral jet was visualized at the time of scanning. Laboratory Results 08/03/16 20:45 Red Blood Count 4.40, Mean Corpuscular Volume 88.6, Mean Corpuscular Hemoglobin 30.2, Mean Corpuscular Hemoglobin Concent 34.1, Mean Platelet Volume 10.9, Neutrophils (%) (Auto) 65.8, Lymphocytes (%) (Auto) 27.8, Monocytes (%) (Auto) 4.6, Eosinophils (%) (Auto) 1.3, Basophils (%) (Auto) 0.3, Neutrophils # (Auto) 4.00, Lymphocytes # (Auto) 1.69, Monocytes # (Auto) 0.28, Eosinophils # (Auto) 0.08, Basophils # (Auto) 0.02 08/03/16 20:45 Test 08/03/16 20:05 08/03/16 20:45 Urine Color YELLOW Urine Appearance CLEAR (CLEAR) Urine pH 7.0 (4.5-7.5) Urine Specific [place] 1.016 (1.000-1.030) Urine Protein NEG (NEG) Urine Glucose (UA) NEG (NEG) Urine Ketones NEG (NEG) Urine Occult Blood NEG (NEG) Urine Nitrite NEG (NEG) Urine Bilirubin NEG (NEG) Urine Urobilinogen NEG (NEG) Urine Leukocyte Esterase TRACE (NEG) Urine WBC (Auto) 1-5 /hpf (0-5) Urine RBC (Auto) 0-4 /hpf (0-4) Urine Hyaline Casts (Auto) 0 /lpf (0-5) Urine Epithelial Cells (Auto) 10-20 /lpf (0-5) Urine Bacteria (Auto) NEG (NEG) Urine Test NEG (NEG) White Blood Count 6.08 K/uL (4.8-10.8) Red Blood Count 4.40 M/uL (4.2-5.4) Hemoglobin 13.3 g/dL (12.0-16.0) Hematocrit 39.0 % (37-47) Mean Corpuscular Volume 88.6 fL (80-100) Mean Corpuscular Hemoglobin 30.2 pg (25-34) Mean Corpuscular Hemoglobin Concent 34.1 g/dl (32-36) Platelet Count 205 K/uL (130-400) Mean Platelet Volume 10.9 fL (7.4-10.4) Neutrophils (%) (Auto) 65.8 % Lymphocytes (%) (Auto) 27.8 % Monocytes (%) (Auto) 4.6 % Eosinophils (%) (Auto) 1.3 % Basophils (%) (Auto) 0.3 % Neutrophils # (Auto) 4.00 K/uL (1.4-6.5) Lymphocytes # (Auto) 1.69 K/uL (1.2-3.4) Monocytes # (Auto) 0.28 K/uL (0.11-0.59) Eosinophils # (Auto) 0.08 K/uL (0-0.5) Basophils # (Auto) 0.02 K/uL (0-0.2) RDW Standard Deviation 39.6 fL (36.4-46.3) RDW Coefficient of Variation 12.3 % (11.5-14.5) Immature Granulocyte % (Auto) 0.2 % Immature Granulocyte # (Auto) 0.01 K/uL (0.00-0.02) Anion Gap 9.0 mmol/L (3-11) Est Creatinine Clear Calc Drug Dose 90.2 ml/min Estimated GFR () 92.8 Estimated GFR (Non- 80.0 BUN/Creatinine Ratio 13.7 (10-20) Calcium Level 9.0 mg/dl (8.5-10.1) Medications Administered Medications (Trade) Dose Ordered Sig/Jono Route Start Time Stop Time Status Last Admin Dose Admin Sodium Chloride 1,000 ml @ 999 mls/hr Q1H1M STAT IV 08/03/16 20:51 08/03/16 21:51 DC 08/03/16 21:49 999 MLS/HR ED Course The patient was evaluated as above. Labs were drawn and IV access was obtained. Patient was medicated with 1 liter NSS. Renal and pelvic ultrasounds were performed and read by radiology as above. Patient was reevaluated and findings were discussed. I did discuss ordering a CT scan, but the patient states she prefers to be discharged home. Discharge instructions were reviewed with the patient. The patient verbalized understanding of my assessment and treatment plan and was discharged home in good condition. Medical Decision Differential diagnosis includes pyelonephritis, kidney stone, pancreatitis, cholecystitis, gastritis, ovarian cyst, ovarian torsion, appendicitis, among others. The patient is a 36-year-old female who presents today complaining of right flank pain. Labs revealed no leukocytosis, anemia, or concerning electrolyte abnormalities. Urinalysis was not suggestive of infection. Pelvic and renal ultrasounds were unremarkable. The patient was offered further workup to include CT scan, but declined. She is afebrile. She is borderline hypotensive but I suspect this is her baseline. She agrees to follow up with her primary care provider to further evaluation. She will return here for worsening or new/ concerning symptoms. The patient's case was reviewed with Dr. Velasquez, ED attending physician, who agreed with my assessment and treatment plan. Based on the patient's presentation and work up, I feel the patient is stable for outpatient treatment. The patient was educated to return to the emergency department for any worsening of their current condition or new/concerning symptoms. She will follow up with her PCP. Medication reconciliation: I attest that I have personally reviewed the patient 's current medication list. Blood pressure screening: Patient was found to have normal blood pressure on screening and does not require follow-up. Impression Primary Impression: Right flank pain Departure Information Dispostion Home / Self-Care Condition GOOD Prescriptions No Active Prescriptions or Reported Meds Referrals No Doctor, Assigned (PCP) Patient Instructions [facility] Additional Instructions You have been treated in the Emergency Department your Abdominal Pain. Laboratory results and imaging studies have ruled out any emergent causes for your abdominal pain which would warrant admission or surgery. For pain control, you can use the following enye-yul-nohjjgn medicines (if >12 yo): - Regular strength (325mg/tab) Tylenol (acetaminophen) 2 tabs every 4-6 hours as needed. Do not exceed 12 tablets in a 24 hour period. Avoid taking more than 4 grams (4000 mg) of Tylenol per day. This includes any other sources of acetaminophen you may take on a regular basis. - Regular strength (200 mg/tab) Advil (ibuprofen) 1-2 tabs every 4-6 hours as needed. Do not exceed a dose of 3200 mg per day. Drink plenty of water and stay well hydrated. As with any trip to the Emergency Department, you should follow-up with your Primary Care Provider from today's visit. Return to the emergency department if you develop worsening abdominal pain, vomiting, fevers or any other new/concerning symptoms.
[2016-08-03 23:20] VITALS: BP 97/48; PULSE 64; O2SAT 97
== END 2016-08-03 23:38 | disposition home or self-care (01) ==
LOC: C.EDB 19:39
DX: R10.9 Unspecified abdominal pain (principal); K80.50 Calculus of bile duct without cholangitis or cholecystitis without obstruction; Z80.9 Family history of malignant neoplasm, unspecified; Z87.891 Personal history of nicotine dependence

== ENCOUNTER → 2017-09-28 | Outpatient (CLI) | payer OTHER ==
[~2017-09-28] MED LIST changes: +AMOX875T3 PO; -BSP/10 PO; -CLON1TAB3 PO; +CODEINE PO; +COUGH PO; +ESTCR PV; -FLUO40CA8 PO; -HYDR-5688 PO; +METR-163 PO; +ONDA4TAB10 SL; +SULF800T23 PO; +TOPI200T14 PO; +VANC5CAP PO
--- NOTE | 2017-09-28 14:07 | DIAGNOSTIC IMAGING REPORT ---
(MARLEY/BLAD)RETROPERITON COMP CLINICAL HISTORY: 37 years-old Female presenting with RT FLANK PAIN. TECHNIQUE: Real-time grayscale and limited color Doppler ultrasound imaging of the kidneys and bladder was performed. COMPARISON: CT from 03/10/2016 and ultrasound from 08/03/2016. FINDINGS: Right kidney: Normal echogenicity of renal parenchyma. Right kidney measures 12.2 cm. No hydronephrosis. No convincing evidence of calculus or mass. Left kidney: Limited sonographic visualization of the left kidney. Left kidney measures 10.1 cm. No hydronephrosis. No convincing evidence of calculus or mass. Bladder: Normal. Bilateral ureteral jets not visualized. Other: None. IMPRESSION: 1. Normal renal ultrasound. No obstruction. Electronically signed by: Timmy Lieberman M.D. 09/28/2017 2:06 PM Dictated Date/Time: 09/28/2017 2:04 PM
== END | disposition home or self-care (01) ==
LOC: C.ULTR 13:28
PROVIDERS: ATTEND Family Medicine
DX: R10.9 Unspecified abdominal pain (principal)

== ENCOUNTER 2017-10-01 22:10 | Emergency (ER) | payer OTHER ==
[~2017-10-01] VITALS: Ht 170.2 cm; Wt 70.2 kg
[~2017-10-01 22:10] MED LIST changes: -CODEINE PO; -COUGH PO; -ESTCR PV; -METR-163 PO; -SULF800T23 PO; -TOPI200T14 PO; -VANC5CAP PO
[2017-10-01 22:12] VITALS: TEMP 36.6; Ht 170.2 cm; Wt 70.2 kg
[2017-10-01] MEDS ORDERED: KETOROLAC TROMETHAMINE 30 MG/ML VIAL IV STA (22:25)
[2017-10-01] MEDS ORDERED: SODIUM CHLORIDE 0.9% 1000ML 1,000 ML IV STA (22:25)
[2017-10-01] MEDS ORDERED: METOCLOPRAMIDE HCL INJ 5 MG/ML 2 ML VIAL IV STA (22:32)
[2017-10-01] MEDS ORDERED: DiphenhydrAMINE HCL 50 MG/ML VIAL IV STA (22:32)
[2017-10-01] MEDS ORDERED: OPTIRAY 320 IV PRN (22:45)
[2017-10-01 22:46] VITALS: O2SAT 96
[2017-10-01] MEDS ORDERED: TOPI200T14 PO (22:52)
[2017-10-01] MEDS ORDERED: VANC5CAP PO (22:55)
[2017-10-01] MEDS ORDERED: METR-163 PO (22:55)
[2017-10-01] MEDS ORDERED: CODEINE PO (22:59)
[2017-10-01] MEDS ORDERED: COUGH PO (22:59)
[2017-10-01 23:10] LABS: BASO % 0.2 %; BASO ABS # 0.01 K/uL (0-0.2); EOS % 0.8 %; EOS ABS # 0.04 K/uL (0-0.5); HEMATOCRIT 38.4 % (37-47); HEMOGLOBIN 13.2 g/dL (12.0-16.0); IG# 0.02 K/uL (0.00-0.02); LYMPH % 26.5 %; LYMPH ABS # 1.36 K/uL (1.2-3.4); MEAN CELL VOLUME 88.1 fL (80-100); MEAN CORPUSCULAR HEMOGLOBIN 30.3 pg (25-34); MEAN CORPUSCULAR HGB CONC 34.4 g/dl (32-36); MEAN PLATELET VOLUME 10.7 fL (7.4-10.4); MONO % 5.4 %; MONO ABS # 0.28 K/uL (0.11-0.59); NEUT % 66.7 %; NEUT ABS # 3.43 K/uL (1.4-6.5); PLATELET COUNT 243 K/uL (130-400); RED CELL DISTRIBUTION WIDTH CV 12.3 % (11.5-14.5); RED CELL DISTRIBUTION WIDTH SD 39.5 fL (36.4-46.3); WHITE BLOOD COUNT 5.14 K/uL (4.8-10.8)
[2017-10-01 23:38] LABS: MONOSPOT NEG (NEG)
[2017-10-01 23:39] LABS: ALBUMIN 4.4 gm/dl (3.4-5.0); ALKALINE PHOSPHATASE 83 U/L (45-117); ALT/SGPT 15 U/L (12-78); AST/SGOT 14 U/L (15-37); BLOOD UREA NITROGEN 9 mg/dl (7-18); CARBON DIOXIDE 24 mmol/L (21-32); CREATININE 0.86 mg/dl (0.60-1.20); GLUCOSE 103 mg/dl (70-99); POTASSIUM 3.4 mmol/L (3.5-5.1); SODIUM 140 mmol/L (136-145); TOTAL PROTEIN 7.7 gm/dl (6.4-8.2)
[2017-10-01] MEDS ORDERED: POTASSIUM CHLORIDE 10 MEQ TABCR PO STA (23:51)
[2017-10-02] MEDS ORDERED: MAGNESIUM CITRATE 296 ML/BTL PO ONE (01:30)
--- NOTE | 2017-10-02 01:43 | EMERGENCY ROOM VISIT NOTE ---
History First contact with patient: 22:17 Chief Complaint: URINARY SYMPTOMS Stated Complaint: UTI , BACK PAIN, VOMITING History of Present Illness The patient is a 37 year old female who presents to the Emergency Room with complaints of fatigue with body aches the past few months for the past few days who has had lower abdominal pain with urinary frequency and occasional back pain. Patient went to her family doctor and was placed on vancomycin and Flagyl for possible UTI. She states her urine culture showed bacteria that was resistant and these antibiotics would cover. Patient complains of subjective fever and chills with nausea and migraine. Patient has a history of migraines. Patient describes her pain as aching, ranging in severity 8 out of 10 to her lower abdomen. Nothing makes it better or worse. It does not radiate. Patient denies chest pain, dyspnea, neck stiffness, sore throat, localized weakness, vision problems, sinus pain or congestion, vaginal itching or discharge. Patient states other family members in her household are sick. She has been coughing. She has had tick bites. Review of Systems An 10 system review of systems was completed with positives and pertinent negatives listed in the HPI. Past Medical/Surgical History Medical Problems: (1) Biliary colic Surgical Problems: (1) Hx of hysterectomy with oophorectomy Migraines, endometriosis Family History FH: cancer Social History Smoking Status: Never Smoker Alcohol Use: occasionally Marital Status: Housing Status: lives with family Occupation Status: employed Current/Historical Medications Scheduled Metronidazole (Flagyl), 500 MG PO Q8 Topiramate (Topamax), 200 MG PO HS Vancomycin Hcl (Vancomycin), 125 MG PO Q6H [Cough Syrup/Codeine], 1 DOSE PO UD Physical Exam Vital Signs Date Time Temp Pulse Resp B/P (MAP) Pulse Ox O2 Delivery O2 Flow Rate FiO2 10/02/17 01:08 39 10/02/17 00:00 55 18 93/51 96 Room Air 10/01/17 22:46 96 Room Air 10/01/17 22:45 58 10/01/17 22:12 36.6 62 18 112/78 96 Room Air Physical Exam VITALS: Vitals are noted on the nurse's note and reviewed by myself. Vital signs stable. GENERAL: Pleasant pain, in no acute distress, nondiaphoretic, well-developed well-nourished. SKIN: The skin was without rashes, erythema, edema, or bruising. There is no tenting of the skin. Capillary reflex less than 2 seconds. HEAD: Normocephalic atraumatic. EARS: External auditory canals clear, tympanic membranes pearly duque without erythema or effusion bilaterally. EYES: Pupils equal round and reactive to light and accommodation. Conjunctivae without injection, sclerae without icterus. Extraocular movements intact. NOSE: Patent, turbinates without inflammation or discharge. No sinus tenderness. MOUTH: Mucous membranes moist. Pharynx without erythema or exudate. Uvula midline. Airway patent. Tongue does not deviate. NECK: Supple without nuchal rigidity. No lymphadenopathy. No thyromegaly. Cervical spine is nontender. No JVD. HEART: Regular rate and rhythm without murmurs gallops or rubs. LUNGS: Clear to auscultation bilaterally without wheezes, rales or rhonchi. No retractions or accessory muscle use. ABDOMEN: Positive bowel sounds x 4. Normal tympanic percussion. Soft, tender to palpation lower abdomen, without masses or organomegaly. Samuel sign negative. No guarding or rebound tenderness. No CVA tenderness MUSCULOSKELETAL: No muscle atrophy, erythema, or edema noted. NEURO: Patient was alert and oriented to person place and time. Normal sensation to light and sharp touch. No focal neurological deficits. Medical Decision & Procedures Laboratory Results 10/01/17 22:52 Red Blood Count 4.36, Mean Corpuscular Volume 88.1, Mean Corpuscular Hemoglobin 30.3, Mean Corpuscular Hemoglobin Concent 34.4, Mean Platelet Volume 10.7, Neutrophils (%) (Auto) 66.7, Lymphocytes (%) (Auto) 26.5, Monocytes (%) (Auto) 5.4, Eosinophils (%) (Auto) 0.8, Basophils (%) (Auto) 0.2, Neutrophils # (Auto) 3.43, Lymphocytes # (Auto) 1.36, Monocytes # (Auto) 0.28, Eosinophils # (Auto) 0.04, Basophils # (Auto) 0.01 10/01/17 22:51 Test 10/01/17 20:30 10/01/17 22:51 10/01/17 22:52 10/01/17 22:55 Urine Color DK YELLOW Urine Appearance TURBID (CLEAR) Urine pH 8.0 (4.5-7.5) Urine Specific [place] 1.021 (1.000-1.030) Urine Protein NEG (NEG) Urine Glucose (UA) NEG (NEG) Urine Ketones TRACE (NEG) Urine Occult Blood NEG (NEG) Urine Nitrite NEG (NEG) Urine Bilirubin NEG (NEG) Urine Urobilinogen NEG (NEG) Urine Leukocyte Esterase SMALL (NEG) Urine WBC (Auto) 1-5 /hpf (0-5) Urine RBC (Auto) 0-4 /hpf (0-4) Urine Hyaline Casts (Auto) 1-5 /lpf (0-5) Urine Epithelial Cells (Auto) 10-20 /lpf (0-5) Urine Bacteria (Auto) NEG (NEG) Anion Gap 7.0 mmol/L (3-11) Est Creatinine Clear Calc Drug Dose 85.4 ml/min Estimated GFR () 98.6 Estimated GFR (Non- 85.1 BUN/Creatinine Ratio 10.2 (10-20) Calcium Level 9.0 mg/dl (8.5-10.1) Magnesium Level 2.3 mg/dl (1.8-2.4) Total Bilirubin 0.6 mg/dl (0.2-1) Direct Bilirubin 0.2 mg/dl (0-0.2) Aspartate Amino Transf (AST/SGOT) 14 U/L (15-37) Alanine Aminotransferase (ALT/SGPT) 15 U/L (12-78) Alkaline Phosphatase 83 U/L (45-117) Total Creatine Kinase 147 U/L (26-192) Troponin I < 0.015 ng/ml (0-0.045) Total Protein 7.7 gm/dl (6.4-8.2) Albumin 4.4 gm/dl (3.4-5.0) Thyroid Stimulating Hormone (TSH) 1.300 uIu/ml (0.300-4.500) Lyme Disease IgG Antibody NEG (NEG) Lyme Disease IgM Antibody NEG (NEG) Monoscreen NEG (NEG) White Blood Count 5.14 K/uL (4.8-10.8) Red Blood Count 4.36 M/uL (4.2-5.4) Hemoglobin 13.2 g/dL (12.0-16.0) Hematocrit 38.4 % (37-47) Mean Corpuscular Volume 88.1 fL (80-100) Mean Corpuscular Hemoglobin 30.3 pg (25-34) Mean Corpuscular Hemoglobin Concent 34.4 g/dl (32-36) Platelet Count 243 K/uL (130-400) Mean Platelet Volume 10.7 fL (7.4-10.4) Neutrophils (%) (Auto) 66.7 % Lymphocytes (%) (Auto) 26.5 % Monocytes (%) (Auto) 5.4 % Eosinophils (%) (Auto) 0.8 % Basophils (%) (Auto) 0.2 % Neutrophils # (Auto) 3.43 K/uL (1.4-6.5) Lymphocytes # (Auto) 1.36 K/uL (1.2-3.4) Monocytes # (Auto) 0.28 K/uL (0.11-0.59) Eosinophils # (Auto) 0.04 K/uL (0-0.5) Basophils # (Auto) 0.01 K/uL (0-0.2) RDW Standard Deviation 39.5 fL (36.4-46.3) RDW Coefficient of Variation 12.3 % (11.5-14.5) Immature Granulocyte % (Auto) 0.4 % Immature Granulocyte # (Auto) 0.02 K/uL (0.00-0.02) Bedside Lactic Acid Venous 0.62 mmol/L (0.90-1.70) Medications Administered Medications (Trade) Dose Ordered Sig/Jono Route Start Time Stop Time Status Last Admin Dose Admin Sodium Chloride 1,000 ml @ 999 mls/hr Q1H1M STAT IV 10/01/17 22:25 10/01/17 23:25 DC 10/01/17 22:44 999 MLS/HR Ketorolac Tromethamine (Toradol Inj) 10 mg NOW STAT IV 10/01/17 22:25 10/01/17 22:31 DC 10/01/17 22:43 10 MG Metoclopramide HCl (Reglan Inj) 10 mg NOW STAT IV 10/01/17 22:32 10/01/17 22:34 DC 10/01/17 22:43 10 MG Diphenhydramine HCl (Benadryl Inj) 12.5 mg NOW STAT IV 10/01/17 22:32 10/01/17 22:34 DC 10/01/17 22:43 12.5 MG Potassium Chloride (Klor-Con M10) 10 meq NOW STAT PO 10/01/17 23:51 10/01/17 23:52 DC 10/02/17 00:02 10 MEQ ED Course Prior records/ancillary studies reviewed and summarized above. Nursing notes reviewed. The patient's history was concerning for lower abdominal pain, urinary symptoms , headache, subjective fever and occasional cough with fatigue and body aches for months. Differential diagnosis: Etiologies such as intra-abdominal, thyroid, Lyme's, metabolic, infection, hypo/ hyperglycemia, electrolyte abnormalities, cardiac sources, intracerebral event, toxicologic, neurologic, as well as others were entertained. Physical examination: As above. ER treatment provided: IV Lock IV fluids, Toradol, Reglan, Benadryl On reassessment the patient felt better. Diagnostics interpretation by me: ECG: Normal sinus, normal intervals, no acute ST-T wave changes, rate of 53. Impression sinus bradycardia interpreted by myself I think arrhythmia is unlikely. EKG shows normal sinus rhythm with no interval abnormalities such as QT prolongation or WPW. There are no findings to suggest Brugada syndrome. Cardiac monitoring in the emergency department reveals no tachycardic or bradycardic dysrhythmia. Hypertrophic cardiomyopathy was considered but there are no clear historical elements pointing toward this. EKG is not suggestive. The QRS voltage is not extremely large and there are no suggestive Q waves. The labs revealed no worrisome leukocytosis. Mild hypokalemia this is replaced orally. Negative urine. Euthyroid. Negative Lyme's. Negative mono Imaging studies: Chest x-ray with no acute consolidation, pneumothorax or free of my interpretation ADDENDUM - Added by Nikolas Lira MD on 10/02/2017 1:37 AM (-04:00) CT ABDOMEN & PELVIS With Contrast: FINDINGS: The lung bases are clear. The liver and spleen are normal in size and free of mass lesions. The gallbladder is surgically absent. Bile ducts and pancreas are normal. The adrenal gland are unremarkable. The kidneys are normal in size and contour. No lesion or hydronephrosis. The appendix is unremarkable, as is the rest of the GI tract. Moderate retained stool throughout the colon. Aorta is normal caliber. No adenopathy or extraluminal air. The osseous structures are normal IMPRESSION: NO acute abnormality of the abdomen or pelvis. Moderate retained stool noted throughout the colon. CT ABDOMEN & PELVIS With Contrast: FINDINGS: The lung bases are clear. The liver and spleen are normal in size and free of mass lesions. The gallbladder is surgically absent. Bile ducts and pancreas are normal. The adrenal gland are unremarkable. The kidneys are normal in size and contour. No lesion or hydronephrosis. The appendix is unremarkable, as is the rest of the GI tract. Moderate retained stool throughout the colon. Aorta is normal caliber. No adenopathy or extraluminal air. The osseous structures are normal IMPRESSION: Acute abnormality abdomen or pelvis. Moderate retained stool noted throughout the colon. Radiologist: Nikolas Lira MD Study ready at 00:22 and initial results transmitted at 01:17 Critical Value Communications Clear Time Type Notes 10/02/17 01:38 Call From [facility] BRENDA Amaro on 10/02 01:24 (-04:00) Exam and history seem consistent with constipation and migraine with ongoing fatigue. Repeat abdominal exam was benign. Patient was neurovascularly and neurologically intact. She is well-appearing. No acute findings on x-ray. Negative urine. Negative lactic acid. No leukocytosis. She was afebrile and nontoxic. She felt much better after being medicated as above. Patient was advised to take medications as directed, rest, stay well-hydrated and follow-up family care in a few days or here in the ER sooner for abdominal pain, chest pain, difficulty breathing, worsening signs or symptoms or as needed. Patient states her blood pressure normally runs low 80/50. This is her baseline. By chart review her blood pressure does run on the low side. Patient is asymptomatic. She is requesting to leave. She was informed though her blood pressure was low. By the evaluation outlined above emergent etiologies such as infection, electrolyte abnormalities, cardiac sources, intracerebral event, toxologic, neurologic, abnormalities blood glucose, metabolic, as well as others were deemed relatively unlikely. The pt informed about the findings as listed above. All questions were answered and pleased with the treatment. Return instructions were outlined and the patient was discharged in stable condition. Outpatient prescription management: Magnesium citrate Referral: The patient was referred back to primary care physician for follow-up in 2 to 3 days for a recheck of the current condition. Case reviewed with my attending The chart was completed utilizing [employer] voice recognition software. Grammatical errors, random word insertions, pronoun errors, and incomplete sentences are an occassional consequence of this system due to software limitations, ambient noise, and hardware issues. Any formal questions or concerns about the content, text, or information contained within the body of this dictation should be directly addressed to the physician assistant account manager for clarification. Medical Decision As above Medication Reconcilliation Current Medication List: was personally reviewed by me Blood Pressure Screening Patient's blood pressure: Low blood pressure Blood pressure disposition: Referred to PCP Impression Primary Impression: Migraine Additional Impressions: Constipation Abdominal pain Hypokalemia Fatigue Body aches Departure Information Dispostion Home / Self-Care Condition GOOD Referrals Jim Pandey MD (PCP) Patient Instructions My [facility] [employer] Additional Instructions DO NOT drive, drink alcohol, operate machinery, or perform dangerous activities today. You were given medications in the ER that can affect your ability to safely function or operate a vehicle. Your blood pressure was low in the ER. This seems to be chronic for you. See your family care doctor for this. Magnesium citrate: Drink half the bottle when you get up, if you do not have a bowel movement within 6 hours then drink the rest of the bottle. You can mix this with jeimy violeta 50:50. Stay near the toilet all day. Increase your fluid and fiber intake. Rest and drink plenty of fluids as tolerated. Continue current medications. Avoid strenuous activities and anything that worsens your pain. Resume normal activities once your symptoms resolve. Return to the ER immediately for worsening or persistent abdominal pain, vomiting, fevers, chest pains, difficulty breathing, worsening of your condition , or as needed. Follow up with your primary physician in 2-3 days for a recheck of your current condition. Problem Qualifiers Primary Impression: Migraine Migraine type: without aura Status migrainosus presence: without status migrainosus Intractability: not intractable Qualified Codes: G43.009 - Migraine without aura, not intractable, without status migrainosus
[2017-10-02 01:45] VITALS: BP 88/59; PULSE 42; O2SAT 96
--- NOTE | 2017-10-02 08:06 | DIAGNOSTIC IMAGING REPORT ---
CT OF THE ABDOMEN AND PELVIS WITH CONTRAST CLINICAL HISTORY: Lower abdominal pain. COMPARISON STUDY: CT of the abdomen and pelvis March 10, 2016 and renal ultrasound September 28, 2017. TECHNIQUE: Following IV administration of 92 mL of Optiray-320, axial images of the abdomen and pelvis were obtained from the lung bases to the proximal femurs. Images were reviewed in the axial, sagittal, and coronal planes. IV contrast was administered without complication. A dose lowering technique was utilized adhering to the principles of ALARA. CT DOSE: 330.38 mGy.cm FINDINGS: Lung bases are clear. No pneumatosis, free air or portal venous gas is present. There is no biliary ductal dilatation status post cholecystectomy. The liver, spleen, adrenal glands, kidneys and pancreas are unremarkable. There is no peripancreatic infiltration. No hydronephrosis is present. The appendix is normal. Caliber and wall thickness of small and large bowel are normal. There is no ascites or lymphadenopathy. There are no suspicious osseous lesions. IMPRESSION: No acute process within the abdomen or pelvis. Normal appendix. Electronically signed by: Kian Hurt M.D. 10/02/2017 8:05 AM Dictated Date/Time: 10/02/2017 8:00 AM
--- NOTE | 2017-10-02 08:13 | DIAGNOSTIC IMAGING REPORT ---
CHEST 2 VIEWS ROUTINE CLINICAL HISTORY: Cough. Fatigue. COMPARISON STUDY: Chest radiograph April 16, 2017. FINDINGS: Lung volumes are normal. Lungs are clear. There is no pneumothorax or pleural effusion. No consolidation is present. There is no evidence for pulmonary edema. Cholecystectomy clips are noted. Cardiac size is normal. Mediastinal contours are normal. IMPRESSION: No acute cardiopulmonary findings. Electronically signed by: Kian Hurt M.D. 10/02/2017 8:11 AM Dictated Date/Time: 10/02/2017 8:11 AM
[2017-10-05] MEDS ORDERED: SULF800T23 PO (16:20)
[2017-10-05] MEDS ORDERED: ESTCR PV (16:55)
--- NOTE | 2017-10-07 12:48 | Pharmacy Progress Note ---
ED Pharmacist Culture FollowUp Date of Service: Oct 07, 2017. Patient's blood culture was positive 1/ for alpha strep not s. pneumo/ enterococcus resistant to macrolides. Patient was admitted after subsequent return to the ED and was discharged 10/05. Contacted Dr. Obrien who was the discharging physician and requested the sensitivities. Per Dr. Obrien no further follow up.
== END 2017-10-02 01:51 | disposition home or self-care (01) ==
LOC: C.EDB 22:11 → C.EDC 10-02 01:51
DX: K59.00 Constipation, unspecified (principal); G43.009 Migraine without aura, not intractable, without status migrainosus; E87.6 Hypokalemia; R53.83 Other fatigue; R52 Pain, unspecified; R03.1 Nonspecific low blood-pressure reading

== ENCOUNTER 2017-10-03 13:45 | Inpatient (IN) | payer OTHER ==
[~2017-10-03] VITALS: Ht 170.2 cm; Wt 71.6 kg
[~2017-10-03 13:45] MED LIST changes: -AMOX875T3 PO; +CODEINE PO; +COUGH PO; +METR-163 PO; -ONDA4TAB10 SL; +TOPI200T14 PO; +VANC5CAP PO
[2017-10-03 15:20] LABS: BASO % 0.3 %; BASO ABS # 0.01 K/uL (0-0.2); EOS % 1.5 %; EOS ABS # 0.06 K/uL (0-0.5); HEMATOCRIT 38.1 % (37-47); HEMOGLOBIN 12.9 g/dL (12.0-16.0); IG# 0.01 K/uL (0.00-0.02); LYMPH % 26.2 %; LYMPH ABS # 1.04 K/uL (1.2-3.4); MEAN CELL VOLUME 88.4 fL (80-100); MEAN CORPUSCULAR HEMOGLOBIN 29.9 pg (25-34); MEAN CORPUSCULAR HGB CONC 33.9 g/dl (32-36); MEAN PLATELET VOLUME 10.6 fL (7.4-10.4); MONO % 5.8 %; MONO ABS # 0.23 K/uL (0.11-0.59); NEUT % 65.9 %; NEUT ABS # 2.62 K/uL (1.4-6.5); PLATELET COUNT 236 K/uL (130-400); RED CELL DISTRIBUTION WIDTH CV 12.4 % (11.5-14.5); RED CELL DISTRIBUTION WIDTH SD 39.9 fL (36.4-46.3); WHITE BLOOD COUNT 3.97 K/uL (4.8-10.8)
--- NOTE | 2017-10-03 15:26 | DIAGNOSTIC IMAGING REPORT ---
CHEST ONE VIEW PORTABLE CLINICAL HISTORY: Fever. COMPARISON STUDY: Chest radiograph October 01, 2017. FINDINGS: Lung volumes are normal. Lungs are clear. No pneumothorax or pleural effusion is noted. Cardiac size is normal. Mediastinal contours are normal. There is no evidence for pulmonary edema. IMPRESSION: No acute cardiopulmonary findings. Electronically signed by: Kian Hurt M.D. 10/03/2017 3:25 PM Dictated Date/Time: 10/03/2017 3:24 PM
[2017-10-03 15:29] LABS: ISTAT CREATININE 1.1 mg/dl (0.6-1.3); ISTAT IONIZED CALCIUM 1.21 mmol/l (1.12-1.32); ISTAT POTASSIUM 3.8 mEq/L (3.3-5.0)
[2017-10-03 15:50] LABS: ALBUMIN 4.4 gm/dl (3.4-5.0); ALKALINE PHOSPHATASE 75 U/L (45-117); ALT/SGPT 16 U/L (12-78); AST/SGOT 13 U/L (15-37); BLOOD UREA NITROGEN 10 mg/dl (7-18); CALCIUM 9.1 mg/dl (8.5-10.1); CARBON DIOXIDE 23 mmol/L (21-32); CKMB < 1.0 ng/ml (0.5-3.6); CREATININE 1.07 mg/dl (0.60-1.20); GLUCOSE 79 mg/dl (70-99); POTASSIUM 3.7 mmol/L (3.5-5.1); SODIUM 139 mmol/L (136-145); TOTAL PROTEIN 7.8 gm/dl (6.4-8.2)
--- NOTE | 2017-10-03 16:06 | Pharmacy Progress Note ---
ED Pharmacist Progress Note Date of Service: Oct 03, 2017. Asked by Dr. Johnson to look into antibiotics/culture history for patient. Per patient was on oral vancomycin/flagyl for UTI and reportedly switched to Bactrim on Monday 10/02, stopped vanco, completing flagyl. Oral vancomycin will not concentrate in urine as it is not systemically absorbed and is therefore excreted in feces. Spoke with walk-in clinic nurse who said patient was given new script for bactrim on Tuesday and per the notes the vanco was for strep viridans- they did UA there but no culture results back and/or done. Called to family medicine office on , nurse confirmed that the urine culture was growing Gardnerella >100,000 CFU/ml and Strep Viridans >100,000 CFU/ml. Did not get the sensitivities from the office. Relayed information to Dr. Johnson.
[2017-10-03] MEDS ORDERED: SODIUM CHLORIDE 0.9% 1000ML 1,000 ML IV STA (16:09)
[2017-10-03] MEDS ORDERED: CEFTRIAXONE SOD INJ 1 GM ADDVIAL IV STA (16:09)
[2017-10-03] MEDS ORDERED: ONDANSETRON INJ 2 MG/ML 2 ML VIAL IV PRN (17:00)
[2017-10-03] MEDS ORDERED: ZOLPIDEM TARTRATE 5 MG TAB PO PRN (17:00)
[2017-10-03] MEDS ORDERED: ALUMINUM/MAGNESIUM/SIMETH (MAALOX MAX) 30 ML UDC PO PRN (17:00)
[2017-10-03] MEDS ORDERED: POLYETHYLENE (MIRALAX) 17 GM PACK PO PRN (17:00)
[2017-10-03] MEDS ORDERED: MAGNESIUM HYDROXIDE SUSP 30 ML UDC PO PRN (17:00)
[2017-10-03] MEDS ORDERED: ACETAMINOPHEN 325 MG TAB PO PRN (17:00)
--- NOTE | 2017-10-03 17:35 | History and Physical ---
History & Physical Date & Time of Service: Oct 03, 2017 at 17:08 Chief Complaint: Called Back By Lg, Abnormal Labs Primary Care Physician: Jim Pandey MD History of Present Illness Source: patient, hospital records, other 37 y/o F Hx migraine headaches. Developed UTI symptoms including dysuria, back pain and fevers the previous week, and visited her primary MD. Urine cultures apparently grew out Gardnerella and S. Viridans. She was placed on oral Vanc and Oral Flagyl. She had persistent fevers and presented to the ER 2 days prior. She was placed on Bactrim and instructed to return to her primary MD Tuesday. Blood culture were obtained during her ER visit. 1/2 cultures returned (+) for Gram + bacteria. As the pt continued to report fevers, she was instructed to revisit the hospital. Following a discussion with the ID service, it was felt that the pt should be placed on IV antibiotics at least until specificity and sensitivities return on her recent blood cultures. We would be able to compare the result to what was found in the urine and determine the course of treatment. The pt is presently amenable to this approach. 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 Smoking Status: Former Smoker Marital Status: Housing status: lives with family Occupational Status: employed Immunizations History of Influenza Vaccine: Unknown History of Tetanus Vaccine?: Unknown History of Pneumococcal: No History of Hepatitis B Vaccine: Unknown Allergies Coded Allergies: Ciprofloxacin (Unverified Allergy, Unknown, ., 10/03/17) Home Medications Scheduled Topiramate (Topamax), 200 MG PO HS Review of Systems Constitutional: + fever, + chills, No sweats Eyes: No worsening of vision ENT: No hearing loss, No unusual epistaxis, No nasal symptoms Respiratory: No cough, No sputum, No wheezing Cardiovascular: No chest pain Abdomen: + pain (Describes occasional flank pain BL) Musculoskeletal: No joint pain Genitourinary - Female: + dysuria Neurologic: No memory loss, No paralysis, No weakness Psychiatric: No depression symptoms Endocrine: No fatigue Hematologic / Lymphatic: No abnormal bleeding/bruising Integumentary: No rash Allergic / Immunologic: No environmental allergies Physical Exam Vital Signs Date Time Temp Pulse Resp B/P (MAP) Pulse Ox O2 Delivery O2 Flow Rate FiO2 10/03/17 15:41 36.8 57 18 93/57 98 Room Air 10/03/17 13:49 36.7 54 18 112/72 98 Room Air General Appearance: WD/WN Head: normocephalic Eyes: normal inspection ENT: normal ENT inspection, pharynx normal Neck: supple, no JVD Respiratory/Chest: chest non-tender, lungs clear, normal breath sounds Cardiovascular: regular rate, rhythm, no edema, no gallop Abdomen/GI: normal bowel sounds, non tender, soft Back: normal inspection, no CVA tenderness Extremities/Musculoskelatal: normal inspection, no calf tenderness, normal capillary refill 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, no motor/sensory deficits, alert, oriented x 3 Skin: normal color Diagnostics Laboratory Results Results Past 24 Hours Test 10/03/17 15:04 10/03/17 15:11 10/03/17 15:14 10/03/17 15:20 Range/Units White Blood Count 3.97 4.8-10.8 K/uL Red Blood Count 4.31 4.2-5.4 M/uL Hemoglobin 12.9 12.0-16.0 g/dL Hematocrit 38.1 37-47 % Mean Corpuscular Volume 88.4 80-100 fL Mean Corpuscular Hemoglobin 29.9 25-34 pg Mean Corpuscular Hemoglobin Concent 33.9 32-36 g/dl Platelet Count 236 130-400 K/uL Mean Platelet Volume 10.6 7.4-10.4 fL Neutrophils (%) (Auto) 65.9 % Lymphocytes (%) (Auto) 26.2 % Monocytes (%) (Auto) 5.8 % Eosinophils (%) (Auto) 1.5 % Basophils (%) (Auto) 0.3 % Neutrophils # (Auto) 2.62 1.4-6.5 K/uL Lymphocytes # (Auto) 1.04 1.2-3.4 K/uL Monocytes # (Auto) 0.23 0.11-0.59 K/uL Eosinophils # (Auto) 0.06 0-0.5 K/uL Basophils # (Auto) 0.01 0-0.2 K/uL RDW Standard Deviation 39.9 36.4-46.3 fL RDW Coefficient of Variation 12.4 11.5-14.5 % Immature Granulocyte % (Auto) 0.3 % Immature Granulocyte # (Auto) 0.01 0.00-0.02 K/uL Prothrombin Time 10.6 9.0-12.0 SECONDS Prothromb Time International Ratio 1.0 0.9-1.1 Sodium Level 139 136-145 mmol/L Potassium Level 3.7 3.5-5.1 mmol/L Chloride Level 107 98-107 mmol/L Carbon Dioxide Level 23 21-32 mmol/L Anion Gap 9.0 17.0 16-25 mmol/L Blood Urea Nitrogen 10 7-18 mg/dl Creatinine 1.07 0.60-1.20 mg/dl Est Creatinine Clear Calc Drug Dose 68.7 ml/min Estimated GFR () 75.7 Estimated GFR (Non- 65.3 BUN/Creatinine Ratio 9.6 10-20 Random Glucose 79 70-99 mg/dl Calcium Level 9.1 8.5-10.1 mg/dl Magnesium Level 2.3 1.8-2.4 mg/dl Total Bilirubin 0.9 0.2-1 mg/dl Direct Bilirubin 0.2 0-0.2 mg/dl Aspartate Amino Transf (AST/SGOT) 13 15-37 U/L Alanine Aminotransferase (ALT/SGPT) 16 12-78 U/L Alkaline Phosphatase 75 45-117 U/L Total Creatine Kinase 165 26-192 U/L Creatine Kinase MB < 1.0 0.5-3.6 ng/ml Creatine Kinase MB Ratio 0-3.0 Troponin I < 0.015 0-0.045 ng/ml Total Protein 7.8 6.4-8.2 gm/dl Albumin 4.4 3.4-5.0 gm/dl Bedside Hemoglobin 12.2 12.0-16.0 g/dl Bedside Hematocrit 36 37-47 % Bedside Sodium 141 135-144 mEq/L Bedside Potassium 3.8 3.3-5.0 mEq/L Bedside Chloride 107 101-112 mEq/L Bedside Total CO2 22 24-31 mEq/l Bedside Blood Urea Nitrogen 10 7-18 mg/dl Bedside Creatinine 1.1 0.6-1.3 mg/dl Bedside Glucose (other) 83 70-99 mg/dl Bedside Ionized Calcium (Delisa) 1.21 1.12-1.32 mmol/l Bedside Lactic Acid Venous 0.70 0.90-1.70 mmol/L Urine Color YELLOW Urine Appearance CLEAR CLEAR Urine pH 7.0 4.5-7.5 Urine Specific [place] 1.006 1.000-1.030 Urine Protein NEG NEG Urine Glucose (UA) NEG NEG Urine Ketones NEG NEG Urine Occult Blood NEG NEG Urine Nitrite NEG NEG Urine Bilirubin NEG NEG Urine Urobilinogen NEG NEG Urine Leukocyte Esterase NEG NEG Urine WBC (Auto) 0 0-5 /hpf Urine RBC (Auto) 0-4 0-4 /hpf Urine Hyaline Casts (Auto) 0 0-5 /lpf Urine Epithelial Cells (Auto) 5-10 0-5 /lpf Urine Bacteria (Auto) NEG NEG Microbiology Results 10/03/17 Blood Culture, Received Pending 10/03/17 Blood Culture, Received Pending Impression Assessment and Plan 37 y/o F Hx migraine headaches. Developed UTI symptoms including dysuria, back pain and fevers the previous week, and visited her primary MD. Urine cultures apparently grew out Gardnerella and S. Viridans. She was placed on oral Vanc and Oral Flagyl. She had persistent fevers and presented to the ER 2 days prior. She was placed on Bactrim and instructed to return to her primary MD Tuesday. Blood culture were obtained during her ER visit. 1/2 cultures returned (+) for Gram + bacteria. As the pt continued to report fevers, she was instructed to revisit the hospital. Following a discussion with the ID service, it was felt that the pt should be placed on IV antibiotics at least until specificity and sensitivities return on her recent blood cultures. We would be able to compare the result to what was found in the urine and determine the course of treatment. The pt is presently amenable to this approach. The pt is placed on IV Ceftriaxone pending additional culture results. Due to the unusual ludmila, it is worth considering cross contamination with a vaginal source or an alternative source. A contaminated culture is also possible as 1/ 2 cultures proved negative and we have not confirmed a fever. She will receive her Topamax HS for migraine prophylaxis. Full code - SCDs Total time for this admit including review of labs, meds, imaging, records - discussion with pt and ER attending - 33 min Resuscitation Status VTE Prophylaxis Will order VTE Prophylaxis: Yes Reason no Mechanical VTE Order: Treatment not indicated
--- NOTE | 2017-10-03 18:02 | EMERGENCY ROOM VISIT NOTE ---
History Report prepared by Vicky: Isidro Bahena Under the Supervision of: Kala LuoO. First contact with patient: 14:34 Chief Complaint: ABNORMAL LABS Stated Complaint: CALLED BACK BY UJANI ABNORMAL LABS History of Present Illness The patient is a 37 year old female who presents to the Emergency Room with complaints of constant pain in the right flank which now tracks over to her left flank. Her symptoms initially started this past Tuesday. She normally does not get any burning or dysuria with UTIs. Symptoms do feel exactly like her previous UTI. She was extremely nauseous and did have some vomiting. Her highest fever was 101.6. She was seen by her PCP initially had a UA which grew out Gardnerella and strep viridans. She was placed on oral vancomycin and Flagyl. Symptoms have really not improved since these antibiotics. She was switched recently and the oral vancomycin stopped and placed on Bactrim. Blood culture today grew out gram-positive cocci and she was called back to the ER. She has started getting some urinary urgency. She does still have chills and shakes. Vomiting has resolved. No other exacerbating or remitting factors. Source of History: patient Onset: this past Tuesday Position: back (right flank, tracking to left flank) Symptom Intensity: 101.6 highest fever Timing: constant Associated Symptoms: + chills, + nausea, + vomiting Review of Systems See HPI for pertinent positives & negatives. A total of 10 systems reviewed and were otherwise negative. Past Medical & Surgical Medical Problems: (1) Bacteremia (2) Biliary colic Surgical Problems: (1) Hx of hysterectomy with oophorectomy Family History FH: cancer Social History Smoking Status: Former Smoker Alcohol Use: occasionally Marital Status: Housing Status: lives with family Occupation Status: employed Current/Historical Medications Scheduled Topiramate (Topamax), 200 MG PO HS Allergies Coded Allergies: Ciprofloxacin (Unverified Allergy, Unknown, ., 10/03/17) Physical Exam Vital Signs Date Time Temp Pulse Resp B/P (MAP) Pulse Ox O2 Delivery O2 Flow Rate FiO2 10/03/17 15:41 36.8 57 18 93/57 98 Room Air 10/03/17 13:49 36.7 54 18 112/72 98 Room Air Physical Exam GENERAL: Sitting up in bed, alert, well appearing, well nourished, no distress, non-toxic EYE EXAM: normal conjunctiva. OROPHARYNX: no exudate, no erythema, lips, buccal mucosa, and tongue normal and mucous membranes are moist NECK: supple, no nuchal rigidity, no adenopathy, non-tender LUNGS: Clear to auscultation. Normal chest wall mechanics HEART: no murmurs, S1 normal and S2 normal ABDOMEN: abdomen soft, non-tender, normo-active bowel sounds, no masses, no rebound or guarding. BACK: Back is symmetrical on inspection and there is no deformity, no midline tenderness, mild lower lumbar bilateral paraspinal tenderness SKIN: no rashes and no bruising UPPER EXTREMITIES: upper extremities are grossly normal. LOWER EXTREMITIES: No pitting edema. NEURO EXAM: Normal sensorium, cranial nerves II-XII grossly intact, normal speech, no gross weakness of arms, no gross weakness of legs. Medical Decision & Procedures ER Provider Diagnostic Interpretation: Radiology results as stated below per my review and the radiologist's interpretation: CHEST ONE VIEW PORTABLE CLINICAL HISTORY: Fever. COMPARISON STUDY: Chest radiograph October 01, 2017. FINDINGS: Lung volumes are normal. Lungs are clear. No pneumothorax or pleural effusion is noted. Cardiac size is normal. Mediastinal contours are normal. There is no evidence for pulmonary edema. IMPRESSION: No acute cardiopulmonary findings. Electronically signed by: Kian Hurt M.D. 10/03/2017 3:25 PM Dictated Date/Time: 10/03/2017 3:24 PM Laboratory Results Test 10/03/17 15:04 10/03/17 15:11 10/03/17 15:14 10/03/17 15:20 Prothrombin Time 10.6 SECONDS (9.0-12.0) Prothromb Time International Ratio 1.0 (0.9-1.1) Est Creatinine Clear Calc Drug Dose 68.7 ml/min Magnesium Level 2.3 mg/dl (1.8-2.4) Total Bilirubin 0.9 mg/dl (0.2-1) Direct Bilirubin 0.2 mg/dl (0-0.2) Aspartate Amino Transf (AST/SGOT) 13 U/L (15-37) Alanine Aminotransferase (ALT/SGPT) 16 U/L (12-78) Alkaline Phosphatase 75 U/L (45-117) Total Creatine Kinase 165 U/L (26-192) Creatine Kinase MB < 1.0 ng/ml (0.5-3.6) Creatine Kinase MB Ratio (0-3.0) Troponin I < 0.015 ng/ml (0-0.045) Total Protein 7.8 gm/dl (6.4-8.2) Albumin 4.4 gm/dl (3.4-5.0) Bedside Hemoglobin 12.2 g/dl (12.0-16.0) Bedside Hematocrit 36 % (37-47) Bedside Sodium 141 mEq/L (135-144) Bedside Potassium 3.8 mEq/L (3.3-5.0) Bedside Chloride 107 mEq/L (101-112) Bedside Total CO2 22 mEq/l (24-31) Bedside Blood Urea Nitrogen 10 mg/dl (7-18) Bedside Creatinine 1.1 mg/dl (0.6-1.3) Bedside Glucose (other) 83 mg/dl (70-99) Bedside Ionized Calcium (Delisa) 1.21 mmol/l (1.12-1.32) Bedside Lactic Acid Venous 0.70 mmol/L (0.90-1.70) Urine Color YELLOW Urine Appearance CLEAR (CLEAR) Urine pH 7.0 (4.5-7.5) Urine Specific [place] 1.006 (1.000-1.030) Urine Protein NEG (NEG) Urine Glucose (UA) NEG (NEG) Urine Ketones NEG (NEG) Urine Occult Blood NEG (NEG) Urine Nitrite NEG (NEG) Urine Bilirubin NEG (NEG) Urine Urobilinogen NEG (NEG) Urine Leukocyte Esterase NEG (NEG) Urine WBC (Auto) 0 /hpf (0-5) Urine RBC (Auto) 0-4 /hpf (0-4) Urine Hyaline Casts (Auto) 0 /lpf (0-5) Urine Epithelial Cells (Auto) 5-10 /lpf (0-5) Urine Bacteria (Auto) NEG (NEG) Laboratory results per my review. Medications Administered Medications (Trade) Dose Ordered Sig/Jono Route Start Time Stop Time Status Last Admin Dose Admin Sodium Chloride 1,000 ml @ 999 mls/hr Q1H1M STAT IV 10/03/17 16:09 10/03/17 17:09 DC 10/03/17 16:09 999 MLS/HR Ceftriaxone Sodium (Rocephin Inj) 1 gm NOW STAT IV 10/03/17 16:09 10/03/17 16:10 DC 10/03/17 16:34 1 GM ECG Per My Interpretation Indication: vomiting Rate (beats per minute): 51 Rhythm: sinus rhythm Findings: other (Normal axis, no PVCs) ED Course ED COURSE: Vital signs were reviewed and showed normal vitals The patients medical record was reviewed The above diagnostic studies were performed and reviewed. ED treatments and interventions as stated above. 1439: The patient was evaluated in room A12A. A complete history and physical examination was performed. 1613: I spoke with Dr. Zulma Samuels [facility] Hospitalist. He will reevaluate the patient for hospitalization. Based on the patients age, coexisting illnesses, exam and lab findings the decision to treat as an inpatient was made. The patient remained stable while under my care. The patient will be evaluated for further management. Medical Decision Differential diagnosis includes etiologies such as sepsis, UTI, pneumonia, metabolic, electrolyte abnormalities, cardiac sources, intracerebral event, toxicologic, neurologic, as well as others were entertained. Patient is a 37-year-old female seen by PCP for urinary symptoms and had urine culture grew out Gardnerella and strep viridans. Patient was seen here several days ago and had blood cultures drawn and was treated for headache. One blood culture grew out gram-positive cocci. She was called back in. She is still having shaking chills and fevers. CBC or BMP, LFTs and lactic acid was normal. UA was negative although she has been on antibiotics. She was initially on the inappropriate treatment as she was on vancomycin orally for strep viridans. I do question if these are truly a contaminant from vaginal origin but with the positive blood culture I did discuss with ID. They recommended IV Rocephin and admission and monitoring. I discussed with the patient. I updated internal medicine. Patient was admitted for further workup of strep viridans in her urine, with gram-positive culture in blood. Medication Reconcilliation Current Medication List: was personally reviewed by me Blood Pressure Screening Patient's blood pressure: Normal blood pressure Consults Time Called: 1608 Consulting Physician: Dr. Zulma Samuels [facility] Hospitalist Returned Call: [address] Zulma Samuels [facility] Hospitalist. He will reevaluate the patient for hospitalization. Impression Primary Impression: UTI (urinary tract infection) Additional Impressions: Back pain Bacteremia Positive blood culture Scribe Attestation The scribe's documentation has been prepared under my direction and personally reviewed by me in its entirety. I confirm that the note above accurately reflects all work, treatment, procedures, and medical decision making performed by me. Departure Information Dispostion Being Evaluated By Hospitalist Referrals Jim Pandey MD (PCP) Patient Instructions My [facility] Problem Qualifiers Primary Impression: UTI (urinary tract infection) Urinary tract infection type: acute cystitis Hematuria presence: with hematuria Qualified Codes: N30.01 - Acute cystitis with hematuria Additional Impressions: Back pain Back pain location: low back pain Chronicity: acute Back pain laterality: bilateral Sciatica presence: without sciatica Qualified Codes: M54.5 - Low back pain
[2017-10-03] MEDS ORDERED: D5NSS + 20MEQ KCL 1,000 ML IV SCH (19:00)
[2017-10-03 19:11] VITALS: BP 100/61; PULSE 54; TEMP 36.8; O2SAT 98; Ht 170.2 cm; Wt 71.6 kg
[2017-10-03] MEDS ORDERED: IV FLUIDS COMPLETED PRN (21:30)
[2017-10-03] MEDS: TOPIRAMATE 100 MG TAB PO SCH (22:06)
[2017-10-03 23:17] VITALS: BP 96/54; PULSE 53; TEMP 36.6; O2SAT 97
[2017-10-04 07:47] VITALS: BP 88/52; PULSE 50; TEMP 36.7; O2SAT 99
[2017-10-04 08:30] VITALS: BP 75/47
[2017-10-04] MEDS ORDERED: LACTATED RINGER'S 1000ML 1,000 ML IV SCH (08:45)
[2017-10-04 09:05] LABS: BASO % 0.4 %; BASO ABS # 0.01 K/uL (0-0.2); EOS % 3.3 %; EOS ABS # 0.09 K/uL (0-0.5); HEMATOCRIT 37.1 % (37-47); HEMOGLOBIN 12.4 g/dL (12.0-16.0); IG# 0.01 K/uL (0.00-0.02); LYMPH % 32.7 %; LYMPH ABS # 0.88 K/uL (1.2-3.4); MEAN CELL VOLUME 89.2 fL (80-100); MEAN CORPUSCULAR HEMOGLOBIN 29.8 pg (25-34); MEAN CORPUSCULAR HGB CONC 33.4 g/dl (32-36); MEAN PLATELET VOLUME 10.2 fL (7.4-10.4); MONO % 5.9 %; MONO ABS # 0.16 K/uL (0.11-0.59); NEUT % 57.3 %; NEUT ABS # 1.54 K/uL (1.4-6.5); PLATELET COUNT 213 K/uL (130-400); RED CELL DISTRIBUTION WIDTH CV 12.6 % (11.5-14.5); RED CELL DISTRIBUTION WIDTH SD 40.4 fL (36.4-46.3); WHITE BLOOD COUNT 2.69 K/uL (4.8-10.8)
[2017-10-04 09:34] LABS: CALCIUM 8.6 mg/dl (8.5-10.1); CREATININE 1.04 mg/dl (0.60-1.20); POTASSIUM 3.8 mmol/L (3.5-5.1)
--- NOTE | 2017-10-04 10:08 | Progress Note ---
Subjective Date of Service: Oct 04, 2017. Subjective Pt evaluation today including: conversation w/ patient, physical exam 37 yo female reports no significant improvement today. She denies any back pain. She does have nausea, and have lower abdominal pain. Patient reports she had some toast and has been able to keep it down. Patient reports feeling cold in the room. Upon questioning her past medical history, has had bacterial vaginosis in the past. Last seen by food and beverage intern in 2017. She states though that she did not receive treatment for it at the time. Patient denies any vaginal discharge. On visits in the afternoon, patient reports having a headache that has been ongoing for 2 hours. Patient reports photophobia and phonophobia. She denied any aura. She states she would like something for her headache. Problem List Medical Problems: (1) Back pain Status: Acute (2) Body aches Status: Acute (3) Constipation Status: Acute (4) Fatigue Status: Acute (5) Hypokalemia Status: Acute (6) Lower abdominal pain Status: Acute (7) Migraine Status: Acute (8) Positive blood culture Status: Acute (9) UTI (urinary tract infection) Status: Acute (10) Vomiting Status: Acute Review of Systems Constitutional: + chills, No fever Eyes: No worsening of vision ENT: No hearing loss Respiratory: No cough Cardiac: No chest pain Breast: No breast lump Abdomen: + pain, + nausea Musculoskeletal: No joint pain Female : No dysuria Neurologic: No memory loss Psychiatric: No depression symptoms Heme: No abnormal bleeding/bruising Endo: No fatigue Skin: No rash All Other Systems: Reviewed and Negative Medications Current Inpatient Medications Medications (Trade) Dose Ordered Sig/Jono Route Start Time Stop Time Status Last Admin Dose Admin Acetaminophen (Tylenol Tab) 650 mg Q4H PRN PO 10/03/17 17:00 11/02/17 16:59 Al Hydrox/Mg Hydrox/Simethicone (Maalox Max Susp) 15 ml Q4H PRN PO 10/03/17 17:00 11/02/17 16:59 Magnesium Hydroxide (Milk Of Magnesia Susp) 30 ml Q6H PRN PO 10/03/17 17:00 11/02/17 16:59 Polyethylene (Miralax Powder Packet) 17 gm DAILY PRN PO 10/03/17 17:00 9/12/18 16:59 Zolpidem Tartrate (Ambien Tab) 5 mg HSZ PRN PO 10/03/17 17:00 11/02/17 16:59 Ondansetron HCl (Zofran Inj) 4 mg Q6H PRN IV 10/03/17 17:00 11/02/17 16:59 10/04/17 06:18 4 MG Topiramate (Topamax Tab) 200 mg HS PO 10/03/17 21:00 11/02/17 20:59 10/03/17 22:06 200 MG Miscellaneous (Iv Fluids Completed) 1 ea PRN PRN N/A 10/03/17 21:30 10/03/18 21:29 Lactated Ringer's 1,000 ml @ 999 mls/hr Q1H1M IV 10/04/17 08:45 10/04/17 09:45 10/04/17 08:45 999 MLS/HR Objective Vital Signs Date Time Temp Pulse Resp B/P (MAP) Pulse Ox O2 Delivery O2 Flow Rate FiO2 10/04/17 08:30 75/47 (56) 10/04/17 08:00 Room Air 10/04/17 07:47 36.7 50 16 88/52 (64) 99 Room Air 10/03/17 23:17 36.6 53 20 96/54 (68) 97 Room Air 10/03/17 20:30 Room Air 10/03/17 19:11 36.8 54 17 100/61 98 Room Air 10/03/17 17:23 60 17 100/61 98 10/03/17 15:41 36.8 57 18 93/57 98 Room Air 10/03/17 13:49 36.7 54 18 112/72 98 Room Air Physical Exam General Appearance: WD/WN, no apparent distress Eyes: normal inspection ENT: normal ENT inspection Neck: supple, no adenopathy Respiratory/Chest: chest non-tender, lungs clear, normal breath sounds Cardiovascular: regular rate, rhythm, no edema Abdomen: normal bowel sounds, + tenderness (in lower quadrants bilateral) Extremities: normal range of motion Neurologic/Psychiatric: alert, oriented x 3 Skin: normal color Lymphatic: no adenopathy Laboratory Results Last 24 Hours Test 10/03/17 15:04 10/03/17 15:11 10/03/17 15:14 10/03/17 15:20 White Blood Count 3.97 K/uL Red Blood Count 4.31 M/uL Hemoglobin 12.9 g/dL Hematocrit 38.1 % Mean Corpuscular Volume 88.4 fL Mean Corpuscular Hemoglobin 29.9 pg Mean Corpuscular Hemoglobin Concent 33.9 g/dl Platelet Count 236 K/uL Mean Platelet Volume 10.6 fL Neutrophils (%) (Auto) 65.9 % Lymphocytes (%) (Auto) 26.2 % Monocytes (%) (Auto) 5.8 % Eosinophils (%) (Auto) 1.5 % Basophils (%) (Auto) 0.3 % Neutrophils # (Auto) 2.62 K/uL Lymphocytes # (Auto) 1.04 K/uL Monocytes # (Auto) 0.23 K/uL Eosinophils # (Auto) 0.06 K/uL Basophils # (Auto) 0.01 K/uL RDW Standard Deviation 39.9 fL RDW Coefficient of Variation 12.4 % Immature Granulocyte % (Auto) 0.3 % Immature Granulocyte # (Auto) 0.01 K/uL Prothrombin Time 10.6 SECONDS Prothromb Time International Ratio 1.0 Sodium Level 139 mmol/L Potassium Level 3.7 mmol/L Chloride Level 107 mmol/L Carbon Dioxide Level 23 mmol/L Anion Gap 9.0 mmol/L 17.0 mmol/L Blood Urea Nitrogen 10 mg/dl Creatinine 1.07 mg/dl Est Creatinine Clear Calc Drug Dose 68.7 ml/min Estimated GFR () 75.7 Estimated GFR (Non- 65.3 BUN/Creatinine Ratio 9.6 Random Glucose 79 mg/dl Calcium Level 9.1 mg/dl Magnesium Level 2.3 mg/dl Total Bilirubin 0.9 mg/dl Direct Bilirubin 0.2 mg/dl Aspartate Amino Transf (AST/SGOT) 13 U/L Alanine Aminotransferase (ALT/SGPT) 16 U/L Alkaline Phosphatase 75 U/L Total Creatine Kinase 165 U/L Creatine Kinase MB < 1.0 ng/ml Creatine Kinase MB Ratio Troponin I < 0.015 ng/ml Total Protein 7.8 gm/dl Albumin 4.4 gm/dl Bedside Hemoglobin 12.2 g/dl Bedside Hematocrit 36 % Bedside Sodium 141 mEq/L Bedside Potassium 3.8 mEq/L Bedside Chloride 107 mEq/L Bedside Total CO2 22 mEq/l Bedside Blood Urea Nitrogen 10 mg/dl Bedside Creatinine 1.1 mg/dl Bedside Glucose (other) 83 mg/dl Bedside Ionized Calcium (Delisa) 1.21 mmol/l Bedside Lactic Acid Venous 0.70 mmol/L Urine Color YELLOW Urine Appearance CLEAR Urine pH 7.0 Urine Specific [place] 1.006 Urine Protein NEG Urine Glucose (UA) NEG Urine Ketones NEG Urine Occult Blood NEG Urine Nitrite NEG Urine Bilirubin NEG Urine Urobilinogen NEG Urine Leukocyte Esterase NEG Urine WBC (Auto) 0 /hpf Urine RBC (Auto) 0-4 /hpf Urine Hyaline Casts (Auto) 0 /lpf Urine Epithelial Cells (Auto) 5-10 /lpf Urine Bacteria (Auto) NEG Test 10/04/17 08:54 White Blood Count 2.69 K/uL Red Blood Count 4.16 M/uL Hemoglobin 12.4 g/dL Hematocrit 37.1 % Mean Corpuscular Volume 89.2 fL Mean Corpuscular Hemoglobin 29.8 pg Mean Corpuscular Hemoglobin Concent 33.4 g/dl Platelet Count 213 K/uL Mean Platelet Volume 10.2 fL Neutrophils (%) (Auto) 57.3 % Lymphocytes (%) (Auto) 32.7 % Monocytes (%) (Auto) 5.9 % Eosinophils (%) (Auto) 3.3 % Basophils (%) (Auto) 0.4 % Neutrophils # (Auto) 1.54 K/uL Lymphocytes # (Auto) 0.88 K/uL Monocytes # (Auto) 0.16 K/uL Eosinophils # (Auto) 0.09 K/uL Basophils # (Auto) 0.01 K/uL RDW Standard Deviation 40.4 fL RDW Coefficient of Variation 12.6 % Immature Granulocyte % (Auto) 0.4 % Immature Granulocyte # (Auto) 0.01 K/uL Sodium Level 142 mmol/L Potassium Level 3.8 mmol/L Chloride Level 112 mmol/L Carbon Dioxide Level 24 mmol/L Anion Gap 6.0 mmol/L Blood Urea Nitrogen 12 mg/dl Creatinine 1.04 mg/dl Est Creatinine Clear Calc Drug Dose 70.6 ml/min Estimated GFR () 78.4 Estimated GFR (Non- 67.6 BUN/Creatinine Ratio 11.6 Random Glucose 98 mg/dl Calcium Level 8.6 mg/dl Assessment and Plan Lower quadrant abdominal pain 37 y/o F with positive Gardnerella in urine and Hx of UTI and bacterial vaginosis and migraine headaches Complicated UTI Patient was treated with flagyl and vanc as an outpatient. Patient did not have improvement Received ceftriaxone in ED. Will place on cefoxitin and doxycycline as concern over possible PID, Will obtain Obgyn consult as well It was determined that patient had hysterectomy which makes PID impossible. will place patient back on ceftriaxone Awaiting URINE cultures. Patient today reports feeling better. Tried to obtain urine cultures and called office, cultures were still preliminary with no growth. Unsure where the Gardnerella and strep came from. Hypotension Doubt septic shock Patient normally in hypotensive. Today systolic was in the 70s. will monitor. patient clinically does not appear to be in shock will give a fluid bolus and place patient on 200 ml of LR. When I examined patient again in the afternoon, her BP had improved to systolic above 90 H/O migraine, with acute migraine Receive her Topamax HS for migraine prophylaxis. will give compazine and benadryl for acute migraine. Lower abd. pain: May be from antibiotic use: vanc/flagyl will monitor. Full code - SCDs Spent 70 minutes in patient management with 33 minutes of indirect patient contact. This included trying to obtain the results of her culture. Reviewing previous records, discussing with consultants.
[2017-10-04 10:15] VITALS: BP 102/57
[2017-10-04] MEDS: CEFOXITIN IV 2,000 MG in DEXTROSE 5% 50ML 50 ML IV SCH ×2 (10:25→16:04)
[2017-10-04] MEDS ORDERED: DOXYCYCLINE IV 100 MG in DEXTROSE 5% 100ML 100 ML IV SCH (11:00)
[2017-10-04] MEDS ORDERED: ESTCR PV (11:01)
[2017-10-04] MEDS: LACTATED RINGER'S 1000ML 1,000 ML IV SCH ×3 (11:13→22:27)
--- NOTE | 2017-10-04 14:02 | GYNECOLOGICAL CONSULTATION ---
DATE OF CONSULTATION: 10/04/2017 CONSULTING PHYSICIAN: Lulú Zayas MD REQUESTING SERVICE: Internal medicine. REASON FOR CONSULTATION: Given to me as rule out pelvic inflammatory disease with lower abdominal pain. HISTORY OF PRESENT ILLNESS: Please note I sat with the patient and her at the bedside for 45 minutes today to take a complete history and physical. The patient describes to me that she is a 37-year-old G1, P1 who first noticed something wrong approximately a week ago at which time she began noticing dysuria and urinary frequency as well as mid back pain. She presented to the [facility] [address] resident urgent care clinic and states she was seen by Dr. Pantoja who collected UA C&S, then prescribed to her Flagyl orally and vancomycin orally for presumed UTI. The patient states that she took the medicines as prescribed for 2 days. The urine ultimately grew out Gardnerella and Strep viridans. The patient found that her back pain did not improve, her urinary frequency did not improve, and in addition, she developed a new-onset abdominal aching and nausea with vomiting. The patient therefore returned to the outpatient walk-in resident clinic and was seen by Dr. Piedra. At that time, he changed the patient from oral vancomycin to oral Bactrim and instructed her to continue the Flagyl. The patient did so, but after another day of worsening back pain and dysuria with additionally worsening nausea and vomiting, she presented to the Emergency Department. She was seen by the Emergency Department, where blood cultures were collected; however, the patient was discharged home. The patient was contacted by phone the next day. The patient states she was told by the person who called her that "there was E. coli in her blood" and she "needed to be admitted to the hospital." The patient did note that she had had fevers at home between leaving the ER and being called back. She continued with back pain, dysuria, urinary frequency, belly pain and nausea. Throughout this, she tells me that she never noticed a change in her bowel movements, which have continued to be regular in frequency and consistency. The patient did return to the hospital as requested. She has been placed on an IV cephalosporin; today represents approximately 24 hours of treatment. She is also being given doxycycline as there is a working diagnosis of pelvic inflammation because of her belly pain. On my discussion with the patient this morning at 10:45 a.m., she relates that she is finally feeling an improvement in the mid back pain and her urinary symptoms. She continues to have nausea and belly pain, which now are preventing her from wanting to eat much food. She has been able to eat toast today, but nothing else. PAST MEDICAL HISTORY: The patient does have migraines for which she takes Topamax daily as a preventive. The patient also reveals a history of endometriosis which was treated by a SYDNEE-BSO by Dr. Menendez 9 years ago. The patient tells me she has had no SWIFT TENDER care since then. Additionally, gallstones, for which the patient underwent cholecystectomy last year. PAST SURGICAL HISTORY: The aforementioned SYDNEE-BSO and lap cholecystectomy. She also had previously undergone a tubal ligation. She is status post 1 normal vaginal delivery of a living child. FAMILY HISTORY: Notable for breast cancer in a maternal grandmother. No ovarian, colon or uterine cancers. There is pancreatic cancer in her family. SOCIAL HISTORY: The patient is a female who is currently accompanied by her who is supportive. She quit smoking 16 years ago. She drinks alcohol 3-4 times per year on holidays and denies any recreational drug use. Of note, when asked about her sexual history, the patient states that she and her are mutually monogamous. Further, she is rarely able to achieve intercourse due to vaginal dryness after surgical menopause. The patient relates that she was not offered and has not ever been on any hormone replacement therapy status post becoming surgically menopausal at age 28. She was not aware that the option exists to use vaginal estrogen and is tearfully grateful at being told she has the option to do so. ALLERGIES: INCLUDE CIPROFLOXACIN. HOME MEDICATIONS: Topamax 200 mg orally each night. PHYSICAL EXAMINATION: VITAL SIGNS: Reviewed, most recently at 10:15 a.m., her blood pressure was 102/57. At 7:47 a.m., she was afebrile at 36.7 and has noted to be afebrile since her admission to hospital. Her pulse is 50. Her respiratory rate is 16-20 and her pulse ox is 99% on room air. GENERAL: This is a pleasant female, appearing her stated age of normal habitus, sitting upright in bed. She appears relatively comfortable. Her respirations are normal rate; however, the patient is noted to have an occasional cough. When questioned about this, she does state that she had a cough for approximately 2 weeks and was seen for that also at the walk-in clinic prior to the onset of her urinary issues. She feels that this has been appropriately treated and the small amount of remaining cough does not bother her much. HEART: Her heart rate is regular and within normal limits. She has no edema and no varicosities. ABDOMEN: On abdominal exam, the patient has a soft, nontender abdomen. There is no rebound and no guarding. Appropriate surgical scars are noted which correlate with the provided surgical history. There is no abdominal distention. EXTREMITIES: Extremities as previously noted are without edema or varicosity. Her reflexes are normal bilaterally. PELVIC: At this time, pelvic exam is deferred. Of note, there is no tenderness to deep palpation of the suprapubic area. The patient denies any vaginal bleeding, vaginal discharge, additional sexual partners other than her . It is my opinion that pelvic exam in this patient who experiences painful vaginal dryness is not only likely to cause her discomfort, but to be unrevealing. The top of her vaginal cuff, status post SYDNEE-BSO will be a blind end without passage into the abdominal cavity and as such her risk for pelvic inflammatory disease is very low. ASSESSMENT AND PLAN: This is a 37-year-old female currently on cephalosporin for presumed UTI/pyelonephritis, and doxy for presumed PID per internal medicine team. The patient additionally has a question of sepsis vs contaminated blood culture. Sepsis: I discussed with the patient today that her blood cultures showed 1 positive culture for a type of bacteria that is a common contaminant and the other culture tube remains negative. Given this information as well as the patient's afebrile status and general lack of distress, I sincerely doubt that the patient is truly septic. If she is, I would anticipate this to be urosepsis rather than a SWIFT TENDER related cause. Abdominal pain: the patient's surgical history and social history make PID highly unlikely. I do suspect that she has had significant alterations in her gut ludmila due to being erroneously given oral vancomycin as well as Flagyl. I discussed with the patient today the differences in absorption and pharmacokinetics of oral vancomycin versus IV vancomycin. The patient does state that when she picked up the oral vancomycin, her pharmacist asked her if she had C. diff. She thought this was notable because she had not heard of that condition. Although she is now in the correct treatment for a urinary tract infection, the change to her gut ludmila - as well as general side effects from taking multiple antibiotics including Flagyl, vancomycin and Bactrim - are all the most likely reason in my opinion for her nausea and abdominal pain. I suggested to the patient that she began a probiotic to help with gut recovery which she can also continue as an outpatient and simply give this time to resolve. As far as the Gardnerella seen on the patient's urine culture, Gardnerella are a normal inhabitant of the healthy vagina. These are typically found as a urinary contaminant when a clean catch is not collected perfectly. They are nonpathogenic and unless the patient is complaining of vaginal discharge and fishy odor (which she is not), they do not require treatment. Finally, due to the patient's discussion with me today about her sexual activity and challenges with vaginal dryness and symptomatic surgical menopause, I will be prescribing vaginal estrogen for her. The risks, benefits and alternatives of this were discussed. Correct use was discussed including nightly for 2 weeks followed by twice per week maintenance and routine annual SWIFT TENDER care were all discussed with the patient. These will be provided to her, although they are not related to her acute issues. These are quality of life issues that she is grateful to have addressed today. Given that I do not think her acute illness is related to PID or gynecologic issues, I will be signing off this patient's care. We look forward to taking care of her on an ongoing basis in the outpatient facility and please let us know if we can be of additional help. MINNA
[2017-10-04 16:03] VITALS: BP 91/56; PULSE 58; TEMP 36.3; O2SAT 97
[2017-10-04] MEDS ORDERED: DiphenhydrAMINE HCL 50 MG/ML VIAL IV STA (16:59)
[2017-10-04] MEDS ORDERED: DiphenhydrAMINE HCL 50 MG/ML VIAL ONE (17:06)
[2017-10-04] MEDS ORDERED: PROCHLORPERAZINE INJ 10 MG in SYRINGE 8 ML IV ONE (17:30)
[2017-10-04] MEDS ORDERED: CEFTRIAXONE SOD INJ 1 GM in DEXTROSE 5% ADD-VANTAGE 50ML 50 ML IV SCH (20:00)
[2017-10-04] MEDS: TOPIRAMATE 100 MG TAB PO SCH (20:29)
[2017-10-04 22:59] VITALS: BP 94/56; PULSE 43; TEMP 36.3; O2SAT 100
[2017-10-05] MEDS: LACTATED RINGER'S 1000ML 1,000 ML IV SCH ×2 (03:15→07:29)
[2017-10-05 07:26] VITALS: BP 94/61; PULSE 49; TEMP 36.4; O2SAT 99
[2017-10-05 08:30] VITALS: O2SAT 99
[2017-10-05 09:37] LABS: BASO % 0.6 %; BASO ABS # 0.02 K/uL (0-0.2); EOS % 3.3 %; EOS ABS # 0.11 K/uL (0-0.5); HEMATOCRIT 39.4 % (37-47); HEMOGLOBIN 13.2 g/dL (12.0-16.0); IG# 0.02 K/uL (0.00-0.02); LYMPH % 34.9 %; LYMPH ABS # 1.18 K/uL (1.2-3.4); MEAN CELL VOLUME 88.9 fL (80-100); MEAN CORPUSCULAR HEMOGLOBIN 29.8 pg (25-34); MEAN CORPUSCULAR HGB CONC 33.5 g/dl (32-36); MEAN PLATELET VOLUME 10.1 fL (7.4-10.4); MONO % 5.6 %; MONO ABS # 0.19 K/uL (0.11-0.59); NEUT ABS # 1.86 K/uL (1.4-6.5); PLATELET COUNT 233 K/uL (130-400); RED CELL DISTRIBUTION WIDTH CV 12.5 % (11.5-14.5); RED CELL DISTRIBUTION WIDTH SD 40.1 fL (36.4-46.3); WHITE BLOOD COUNT 3.38 K/uL (4.8-10.8)
[2017-10-05 10:33] LABS: CREATININE 0.96 mg/dl (0.60-1.20); POTASSIUM 3.9 mmol/L (3.5-5.1)
[2017-10-05] MEDS ORDERED: LACTOBACILLUS ACIDOPHILUS (FLORANEX) TAB PO SCH (12:00)
[2017-10-05 15:40] VITALS: O2SAT 99
[2017-10-05 15:43] VITALS: PULSE 53; TEMP 36.6; O2SAT 98
[2017-10-05 15:59] VITALS: BP 101/63
[2017-10-05] MEDS ORDERED: SULF800T23 PO (16:20)
--- NOTE | 2017-10-05 16:22 | Discharge Instructions ---
Discharge Instructions Date of Service Oct 05, 2017. Admission Reason for Admission: Bacteremia Discharge Discharge Diagnosis / Problem: UTI Discharge Goals Goal(s): Decrease discomfort Activity Recommendations Activity Limitations: resume your previous activity . Instructions / Follow-Up Instructions / Follow-Up Continue Bactrim for 7 days Current Hospital Diet Patient's current hospital diet: Regular Diet Discharge Diet Recommended Diet: Regular Diet Pending Studies Studies pending at discharge: no Medical Emergencies . Who to Call and When: Medical Emergencies: If at any time you feel your situation is an emergency, please call 911 immediately. . Non-Emergent Contact Non-Emergency issues call your: Primary Care Provider Call Non-Emergent contact if: you have any medication questions . . "Provider Documentation" section prepared by Skip Obrien. .
[2017-10-05 16:30] VITALS: BP 101/63; PULSE 53; TEMP 36.6; O2SAT 98
[2017-10-05] MEDS ORDERED: ESTCR PV (16:55)
--- NOTE | 2017-10-05 22:21 | Discharge Summary ---
Discharge Summary Date of Service Oct 05, 2017. Discharge Summary Admission Date: Oct 03, 2017 at 17:37 Discharge Date: Oct 05, 2017 Discharge Disposition: Home Principal Diagnosis: Complicated UTI Immunizations: Have You Had Influenza Vaccine: Unknown History of Tetanus Vaccine?: Unknown History of Pneumococcal: No History of Hepatitis B Vaccine: Unknown Medication Reconciliation New Medications: Estradiol Vaginal (Estrace) 0.1 Mg/Gm Cre 1 GM PV QD for 30 Days, #1 TUBE Sulfamethoxazole-Trimethoprim (Bactrim Ds 800MG/160MG) 1 Tab Tab 1 TAB PO BID for 7 Days, #14 TAB Continued Medications: Topiramate (Topamax) 200 Mg Tab 200 MG PO HS, TAB Discharge Exam Review of Systems Constitutional: + chills, No fever Eyes: No worsening of vision ENT: No hearing loss Respiratory: No cough Cardiac: No chest pain Breast: No breast lump Abdomen: no pain or nausea. Musculoskeletal: No joint pain Female : No dysuria Neurologic: No memory loss Psychiatric: No depression symptoms Heme: No abnormal bleeding/bruising Endo: No fatigue Skin: No rash All Other Systems: Reviewed and Negative Physical Exam General Appearance: WD/WN, no apparent distress Eyes: normal inspection ENT: normal ENT inspection Neck: supple, no adenopathy Respiratory/Chest: chest non-tender, lungs clear, normal breath sounds Cardiovascular: regular rate, rhythm, no edema Abdomen: normal bowel sounds, no tenderness noted on exam Extremities: normal range of motion Neurologic/Psychiatric: alert, oriented x 3 Skin: normal color Lymphatic: no adenopathy Hospital Course Lower quadrant abdominal pain 37 y/o F with positive Gardnerella in urine and Hx of UTI and bacterial vaginosis and migraine headaches Complicated UTI Patient was treated with flagyl and vanc as an outpatient. Patient did not have improvement Received ceftriaxone in ED. Will place on cefoxitin and doxycycline as concern over possible PID, Will obtain Obgyn consult as well It was determined that patient had hysterectomy which makes PID impossible. will place patient back on ceftriaxone cultures were negative. will treat UTI empirically. As patinet improved over past24 hours, will discharge today Hypotension resolved Doubt septic shock Patient normally in hypotensive. Patient responded with fluid bolus and has been normotensive for past 36 hours H/O migraine, with acute migraine Receive her Topamax HS for migraine prophylaxis. gave compazine and benadryl for acute migraine yesterday Lower abd. pain: May be from antibiotic use: vanc/flagyl will monitor. This improved om day of discharge. will recommend lactobacillus OTC at discharge. Full code - SCDs Total Time Spent: Greater than 30 minutes This includes examination of the patient, discharge planning, medication reconciliation, and communication with other providers. Discharge Instructions Please refer to the electronic Patient Visit Report (Discharge Instructions) for additional information. Follow-Up as noted on discharge instructions Additional Copies To Jim Pandey MD
== END 2017-10-05 16:59 | disposition home or self-care (01) | DRG 103 ==
LOC: C.EDB 14:16 → C.4E 16:54 → ENRESERV 17:14 → EDBEDREQ 17:33 → OBSVTOIN 17:37
PROVIDERS: ADMIT Internal Medicine; ATTEND Internal Medicine Sports Medicine
DX: G43.909 Migraine, unspecified, not intractable, without status migrainosus (principal); N39.0 Urinary tract infection, site not specified; Z82.49 Family history of ischemic heart disease and other diseases of the circulatory system; Z83.49 Family history of other endocrine, nutritional and metabolic diseases; Z87.891 Personal history of nicotine dependence; I95.9 Hypotension, unspecified; R10.30 Lower abdominal pain, unspecified; T36.8X5A Adverse effect of other systemic antibiotics, initial encounter; T37.3X5A Adverse effect of other antiprotozoal drugs, initial encounter; N76.0 Acute vaginitis

== ENCOUNTER 2017-10-12 15:56 | Inpatient (IN) | payer OTHER ==
[~2017-10-12] VITALS: Ht 170.2 cm; Wt 71.8 kg
[~2017-10-12 15:56] MED LIST changes: -AMOX875T3 PO; -CODEINE PO; -COUGH PO; -METR-163 PO; -ONDA4TAB10 SL; -VANC5CAP PO
[2017-10-12 16:07] VITALS: BP 106/67; PULSE 53; TEMP 36.5; O2SAT 94
[2017-10-12 16:15] VITALS: O2SAT 96
[2017-10-12 16:20] VITALS: BP 106/67; PULSE 53; TEMP 36.5; O2SAT 94; Ht 170.2 cm; Wt 71.8 kg
--- NOTE | 2017-10-12 19:56 | Progress Note ---
Progress Note Date of Service Oct 12, 2017. Progress Note office note [id number]
--- NOTE | 2017-10-12 20:38 | HISTORY & PHYSICAL EXAMINATION ---
DATE OF ADMISSION: 10/12/2017 CHIEF COMPLAINT: Right-sided flank pain. HISTORY OF PRESENT ILLNESS: The patient is a very pleasant 37-year-old female who was sent over to the hospital for evaluation of right-sided flank pain with concern that she had pyelonephritis, failing outpatient treatment. She notes her whole story began maybe 3 or 4 weeks ago where she had onset of this right-sided back and flank pain of no clear cause. She did not injure herself. She was not bending, lifting, falling, etc., but she started with right-sided pain, kind of flank and down her back. She remembers it being reminiscent of when she had kidney infections before. However, her last kidney infection was at least 17 years ago and at the point that this is all going on, she notes she did not have any lower urinary tract symptoms, although she does note that she does not or at least did not seem to recall lower urinary tract symptoms whenever she had this kidney infections before. That said, she then presented to her PCP with these symptoms, but also concomitantly had a fever of about 102 with sinus congestion, upper respiratory symptoms that seem to be more of a viral URI, but at that point in time, there was a concern about a possible kidney infection. A UA was sent. Her culture only grew Strep viridans and Gardnerella, but because of concern of whether or not she may have some sort of atypical pyelo, she was treated with antibiotics. Interestingly, it was oral vancomycin as well as metronidazole. She did not get better with her pain. Notably, her fevers and upper respiratory symptoms essentially resolved. She does still have a little bit of a cough, but otherwise those symptoms resolved, but still had this right-sided back and flank pain and no other symptoms to show for it. She then was admitted to the hospital. 10/03/2017 through 10/05/2017 on the heels of an ER visit 10/01/2017. On the ER visit 10/01/2017, she had 1 of 2 blood cultures positive for alpha strep later deemed to be nonsignificant false positive on her admission 10/03/2017 through 10/05/2017, she was treated as though she had a complicated UTI; however, she had no new urine cultures done. Her blood cultures at that point were negative and she was treated for several days with cefoxitin, initially ceftriaxone and doxycycline. She noted at one point she felt great and asked to be discharged, then followed up in the office, was on Bactrim, started to have diarrhea, cramping lower abdominal pain that would even radiate to her anterior thighs. The diarrhea was very watery and profuse for a few days, is starting to slow and is becoming more solid, but her flank pain has been ongoing and unchanged. She notes the flank pain to be right-sided lower. It does not seem to be better or worse in any given position, but also nothing else seems to make it come on or go. It is not associated with urination or bowel movements and she has no ongoing fevers, chills or sweats. Her urine is a little bit dark. She had some nausea, vomiting that has since resolved. The diarrhea is resolving. REVIEW OF SYSTEMS: Otherwise negative, except for as above. PAST MEDICAL HISTORY: Includes chronic migraines, endometriosis status post SYDNEE-BSO about 10 years ago. PAST SURGICAL HISTORY: Includes the aforementioned TAHBSO, a tubal, and a cholecystectomy. FAMILY HISTORY: Includes cancer, hypertension, hypothyroidism. SOCIAL HISTORY: She is not a smoker, rarely drinks. She works at a [employer]. It is noted that she is a former smoker in the chart, although she did not note this to me. She is and lives with her family who seem to be very supportive. ALLERGIES: INCLUDE CIPRO. HOME MEDICATIONS: Listed as Topamax 200 mg at bedtime and also over the last 2 weeks she has been oral vancomycin and Flagyl, IV Rocephin and cefoxitin, doxycycline IV, Bactrim p.o., and at least 1 g of Rocephin IM in the office. PHYSICAL EXAMINATION: VITAL SIGNS: Showed a temp of 36.5, pulse 53, respiratory rate 18, blood pressure 106/67, 94-96% on room air. GENERAL: She is awake, alert, oriented x3, pleasant, in no acute distress except for whenever she is moving in which case she shows a degree of pain from her back. HEENT: Normocephalic, atraumatic. Mucous membranes are slightly dry. CARDIOVASCULAR: Regular without rubs, murmurs, or gallops. LUNGS: Clear to auscultation bilaterally. No rales, rhonchi, or wheezes. Good effort. ABDOMEN: Soft, nondistended, really minimal tenderness, maybe a mild degree of lower abdominal tenderness which seems to be much improved from yesterday, although the diarrhea also seems to be much improved from yesterday. EXTREMITIES: Show no cyanosis, clubbing or edema. No calf tenderness. SKIN: Shows no rashes, no pallor or icterus. It is warm and dry. NEUROLOGIC: Shows cranial nerves II-XII to be grossly intact. Gross motor and sensory intact. Most notably with neuro, she does not have any abdominal dermatome sensory discrepancies comparing one side to the other. MUSCULOSKELETAL/OSTEOPATHIC STRUCTURAL EXAM: She has exquisite right-sided, more than actually on the bone, paraspinal tenderness to palpation with a degree of wincing on palpation. She has a degree of decreased rib range of motion in the ribs, especially 10, 11 and 12 on the right where they are more exhaled and somewhat tender to palp, although most of her tenderness is in the lumbar spine paraspinals and immediate surrounding musculature. LABS AND DIAGNOSTICS: Lumbar spine x-rays do not show any fractures or gross deformities and a basic metabolic panel shows sodium 140, potassium 3.8, chloride 108, CO2 of 25, BUN 14, creatinine 1.06, calcium 9.2, glucose 82. ASSESSMENT AND PLAN: 1. Back pain. It appears especially given her lack of positive urine cultures, false-positive blood culture, no leukocytosis, fevers only at the very onset whenever it was more attributable to a viral upper respiratory infection that was in fact prevalent in the community. It seems that her pain is really much more musculoskeletal than it is anything renal both based on how it looks and examines on her history and also based on the fact that she does not have any of the other symptoms that would go with pyelo such as fevers, chills, sweats constitutional symptoms and it would be very atypical for her to not have any lower urinary tract symptoms without also having a lot of nausea and vomiting. It is noted that approximately 20% of pyelos do not have lower urinary tract symptoms, but again with the absolute duration of her flank pain being now working on a month if this is pyelo that was not going away, one would expect her to be much more toxic than this. Furthermore, her physical exam and history do fit extremely well with musculoskeletal pain which obviously would not get better with antibiotics. We discussed this at length and in detail and discussed possible treatment plans including staying in the hospital to ensure she starts to improve versus outpatient treatment and with explanation of what we were seeing, she opted for outpatient treatment. Labs and x-ray done as above, were done as an outpatient and then I personally called the patient to inform her of the results. As far as plan, we will be utilizing initially for symptom control, ibuprofen 800 mg q.i.d. p.r.n. pain take with food and Flexeril 10 mg at bedtime caution obviously drowsiness and then over the longer term Voltaren gel q.i.d. to the area as well as manipulative medicine either with chiropractic or preferably with Panchito Gamboa DO, here in [facility]. She expressed good understanding of all of this. I then rereviewed the plan with her and her , who expressed good understanding. They appreciated our input on things and she was safe to go home. 2. Diarrhea. This appears to be antibiotic side effect. I checked a basic metabolic panel to ensure she was not seriously dehydrated from it given that she does appear mildly dry. However, fortunately, her labs do corroborate only a mild degree of being dry and p.o. fluid intake should suffice. 3. Mild dehydration due to above which appears to be related to antibiotics. Oral fluid and followup in the office. 4. Disposition. We discussed again staying in the hospital versus going home with close outpatient followup. I saw the patient in conjunction with Vicenta Rincon MD, one of our second-year residents, who is available to see the patient in the office for medical followup and we will have her follow up with Dr. Rincon to ensure continuity of care and continuity of the plan and again we will refer preferably to Panchito Gamboa DO, for OMT to work on the tight muscles. The patient expressed great appreciation for her care. Total time including chart review time in the room with the patient, discussions, following up on labs, etc., was easily 2 hours; however, this was all outpatient care.
== END 2017-10-12 17:53 | disposition home or self-care (01) | DRG 552 ==
LOC: C.MSW 15:56
PROVIDERS: ADMIT Family Medicine; ATTEND Family Medicine
DX: M54.9 Dorsalgia, unspecified (principal); R19.7 Diarrhea, unspecified; T36.95XA Adverse effect of unspecified systemic antibiotic, initial encounter; G43.909 Migraine, unspecified, not intractable, without status migrainosus; Z87.891 Personal history of nicotine dependence; Z79.899 Other long term (current) drug therapy; Z88.1 Allergy status to other antibiotic agents

== ENCOUNTER → 2017-10-12 | Outpatient (CLI) | payer OTHER ==
[~2017-10-12] MED LIST changes: +AMOX875T3 PO; +ESTCR PV; +ONDA4TAB10 SL; +SULF800T23 PO
--- NOTE | 2017-10-12 18:43 | DIAGNOSTIC IMAGING REPORT ---
LUMBAR SPINE 2 OR 3 VIEWS CLINICAL HISTORY: 37 years-old Female presenting with R PARASPINAL PAIN. TECHNIQUE: Frontal, lateral, and coned in lateral views of the lumbar spine were obtained. COMPARISON: CT of abdomen and pelvis from 10/02/2017. FINDINGS: The patient is slightly TRISTANIAN rotated. Mild dextroscoliotic curvature may be present though this appearance could be due to TRISTANIAN rotation. Cholecystectomy clips noted. Nonobstructive bowel gas pattern. Arcuate lines of the sacrum intact. Visualized portion of the pelvis intact. Otherwise normal lumbar lordosis. Vertebral bodies maintain normal height and alignment. Intervertebral disc heights preserved. No radiographic evidence of a compression deformity or subluxation. No osseous neural foraminal narrowing. IMPRESSION: No radiographic evidence of acute osseous injury or advanced degenerative change. Electronically signed by: Timmy Lieberman M.D. 10/12/2017 6:41 PM Dictated Date/Time: 10/12/2017 6:39 PM
[2017-10-12 19:24] LABS: BLOOD UREA NITROGEN 14 mg/dl (7-18); CALCIUM 9.2 mg/dl (8.5-10.1); CARBON DIOXIDE 25 mmol/L (21-32); CREATININE 1.06 mg/dl (0.60-1.20); GLUCOSE 82 mg/dl (70-99); POTASSIUM 3.8 mmol/L (3.5-5.1); SODIUM 140 mmol/L (136-145)
== END | disposition home or self-care (01) ==
LOC: C.RAD 18:03
PROVIDERS: ATTEND Family Medicine
DX: R19.7 Diarrhea, unspecified (principal); E86.0 Dehydration